=== PATIENT | female | born 1950 | race Caucasian/White ===

== ENCOUNTER 2017-10-13 07:13 | Emergency (ER) | payer MEDICARE, OTHER ==
[2017-10-13] MEDS ORDERED: Phenazopyridine 95 MG Tab PO ONE (07:37)
[2017-10-13] MEDS ORDERED: Sulfamethoxazole/Trimethoprim 800-160 MG Tab PO ONE (07:37)
--- NOTE | 2017-10-13 07:37 | EDM.PDOC ---
ED HPI GENERAL MEDICAL PROBLEM - General Chief Complaint: Genitourinary Problem Stated Complaint: PASSING BLOOD Time Seen by Provider: 10/13/17 07:28 Source of Information: Reports: Patient History Limitations: Reports: No Limitations - History of Present Illness INITIAL COMMENTS - FREE TEXT/NARRATIVE: 67-year-old female presents to the ED with acute onset of dysuria urgency and gross hematuria starting about 2 AM this morning. She's was somewhat aware of urinary tract discomfort yesterday afternoon but awoke with symptoms this morning. Socially she has been drinking larger quantities of water overnight but continues to have significant dysuria urgency and frequency with gross hematuria. She is afebrile. She has no back pain. She states she did have a urinary tract infection back in mid summer months last year. And multiple antibiotics for sinus infection over the last few months primarily as Z-Dean followed by a few tablets of Augmentin. She continues to have chronic sinus postnasal drip. 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: Other (see below) (She did take some Azo during the night.) Vaginal Pain Score (Numeric/FACES): 7 - Related Data Allergies Allergy/AdvReac Type Severity Reaction Status Date / Time No Known Allergies Allergy Verified 10/13/17 07:26 Home Meds: Home Meds Phenazopyridine HCl [Pyridium] 100 mg PO Q6H #5 tablet 10/13/17 [Rx] Sulfamethoxazole/Trimethoprim [Bactrim Ds Tablet] 1 each PO BID #14 tablet 10/13 [Rx] Past Medical History HEENT History: Reports: Sinusitis (With chronic postnasal drip) Gastrointestinal History: Reports: GERD Social & Family History - Tobacco Use Smoking Status *Q: Never Smoker Second Hand Smoke Exposure: No - Caffeine Use Caffeine Use: Reports: Tea - Alcohol Use Days Per Week of Alcohol Use: 3 Number of Drinks Per Day: 1 Total Drinks Per Week: 3 - Recreational Drug Use Recreational Drug Use: No - Living Situation & Occupation Living situation: Reports: Single Occupation: Employed ED ROS GENERAL - Review of Systems Review Of Systems: See Below Constitutional: Denies: Fever, Chills, Malaise, Weakness, Fatigue, Night Sweats , Diaphoresis, Decreased Appetite, Weight Loss HEENT: Reports: No Symptoms Respiratory: Reports: No Symptoms Cardiovascular: Reports: No Symptoms Endocrine: Reports: No Symptoms GI/Abdominal: Reports: Abdominal Pain (Lower abdominal discomfort mostly suprapubic pressure discomfort.) : Reports: Dysuria, Frequency, Hematuria (Gross hematuria), Urgency Musculoskeletal: Reports: No Symptoms Skin: Reports: No Symptoms Neurological: Reports: No Symptoms ED EXAM, RENAL/ - Physical Exam Exam: See Below Exam Limited By: No Limitations General Appearance: Alert, WD/WN, Moderate Distress Cardiovascular: Normal Peripheral Pulses, Regular Rate, Rhythm, No Edema GI/Abdominal: Normal Bowel Sounds, Soft, Other. No: Guarding, Rebound, Tender Back Exam: Normal Inspection, Full Range of Motion. No: CVA Tenderness (L), CVA Tenderness (R) Extremities: Normal Inspection, Normal Range of Motion, Non-Tender, No Pedal Edema Neurological: Alert, Oriented, CN II-XII Intact, Normal Cognition, Normal Gait Psychiatric: Normal Affect, Normal Mood Skin Exam: Warm, Dry, Intact, Normal Color, No Rash Course - Vital Signs Last Recorded V/S: Last Vital Signs Temp 36.1 C 10/13/17 07:18 Pulse 76 10/13/17 07:18 Resp 18 10/13/17 07:18 BP Pulse Ox 96 10/13/17 07:18 - Orders/Labs/Meds Orders: Active Orders 24 hr Category Date Time Status Blood Glucose Check, Bedside [RC] ONETIME Care 10/13/17 08:18 Active CULTURE URINE [RM] Stat Lab 10/13/17 07:25 Received Labs: Laboratory Tests 10/13/17 10/13/17 Range/Units 07:25 08:18 POC Glucose 112 (80-115) mg/dL Urine Color Red H (Yellow) Urine Appearance Cloudy H (Clear) Urine pH 7.0 (5.0-8.0) Ur Specific [place] 1.020 (1.005-1.030) Urine Protein 2+ H (Negative) Urine Glucose (UA) Negative (Negative) Urine Ketones Negative (Negative) Urine Occult Blood 3+ H (Negative) Urine Nitrite Negative (Negative) Urine Bilirubin 1+ H (Negative) Urine Urobilinogen 1.0 (0.2-1.0) Ur Leukocyte Esterase 3+ H (Negative) Urine RBC Too numerous to cnt H (0-5) /hpf Urine WBC 5-10 H (0-5) /hpf Ur Epithelial Cells Not seen (0-5) /hpf Urine Bacteria Not seen (FEW) /hpf Urine Mucus Not seen (FEW) /hpf Urinalysis Comment See comment Meds: Medications Discontinued Medications Generic Name Dose Route Start Last Admin Trade Name Freq PRN Reason Stop Dose Admin Phenazopyridine HCl 95 mg 10/13/17 07:37 10/13/17 07:44 Urinary Pain Relief PO 10/13/17 07:38 95 mg ONETIME ONE Administration Trimethoprim/Sulfamethoxazole 1 tab 10/13/17 07:37 10/13/17 07:43 Septra Ds PO 10/13/17 07:38 1 tab ONETIME ONE Administration - Radiology Interpretation Free Text/Narrative:: 67-year-old female presents the ED with acute onset of dysuria urgency and frequency starting at 0200 hrs. this morning. Is aware some lower abdominal discomfort yesterday afternoon. Socially she is developed gross hematuria with each void. Return to void the ED is cranberry urine. Plan urinalysis will be collected and culture ordered. Patient will be given Pyridium 95 mg per ora now and started on Bactrim double strength with first tablet provided now. - Re-Assessments/Exams Free Text/Narrative Re-Assessment/Exam: 10/13/17 08:19 Urinalysis shows 2+ protein 3+ occult blood and 3+ leukocyte esterase. RBCs are too numerous to count. Urine WBCs 5-10. Urine culture has been ordered. 10/13/17 08:33 patient's blood sugar was 112 by glucometer assessment. Reassured that there is no sign of diabetes at this time. Discharged home on Bactrim double strength twice a day for the next 7 days. Pyridium 100 mg every 6 hours 5 doses or until dysuria resolves. Suggested follow-up urinalysis in the clinic one week after finishing antibiotics. Departure - Departure Time of Disposition: 08:19 Disposition: Home, Self-Care 01 Condition: Fair Clinical Impression: Acute hemorrhagic cystitis - Discharge Information Prescriptions: Phenazopyridine HCl [Pyridium] 100 mg PO Q6H #5 tablet Sulfamethoxazole/Trimethoprim [Bactrim Ds Tablet] 1 each PO BID #14 tablet Instructions: Urinary Tract Infection, Adult, [id number] Referrals: Kenneth Milton Jr, MD [Primary Care Provider] - Forms: ED Department Discharge Additional Instructions: Evaluation the emergency room today in regards to development of a significant urinary tract infection overnight with gross blood in the urine. We call this hemorrhagic cystitis. It's a reflection of the type of bacterial infection that invades the bladder wall that causes it to bleed. Treatment is to continue plenty of fluids to flush the bladder. Use Pyridium 100 mg every 6-8 hours to relieve burning discomfort until feeling better. Antibiotic is to be Bactrim double strength 1 tablet twice daily for 7 days. First tablet was started in the ED this morning. Next tablet would be due around suppertime tonight. Tablets should ideally be taken with food rather empty stomach. Expect marked improvement within the next 12-24 hours. Should have a repeat urinalysis performed 1 week after finishing the antibiotics to make sure that there is no reason for recurrent your neck tract infections. - My Orders Last 24 Hours: My Active Orders 10/13/17 07:25 CULTURE URINE [RM] Stat 10/13/17 08:18 Blood Glucose Check, Bedside [RC] ONETIME - Assessment/Plan Last 24 Hours: My Active Orders 10/13/17 07:25 CULTURE URINE [RM] Stat 10/13/17 08:18 Blood Glucose Check, Bedside [RC] ONETIME
== END 2017-10-13 08:23 | disposition home or self-care (01) ==
LOC: JD.ED 07:13
DX: N30.00 Acute cystitis without hematuria (principal); K21.9 Gastro-esophageal reflux disease without esophagitis
CPT/HCPCS: 81001; 82962; 87086; 87088; 87186; 99284; A9270; 99283

== ENCOUNTER 2018-05-01 06:03 | Day surgery (SDC) | payer MEDICARE, OTHER ==
[~2018-05-01 06:03] MED LIST: Acetaminophen 325 MG Tab PO SCH; Lactated Ringers 1,000 ML IV SCH; Lidocaine 1%/Sod Bicarbonate in NS 8.4% 1 ML Syringe IDERM PRN; Pregabalin 25 MG Cap PO SCH; Sodium Chloride 0.9% 10 ML Syringe FLUSH PRN; oxyCODONE ER 10 MG TAB.ER PO SCH
[2018-05-01] MEDS ORDERED: Cyclobenzaprine 10 MG Tab PO PRN (06:31)
[2018-05-01] MEDS ORDERED: Naloxone 0.4 MG/ML SDV IVPUSH PRN (06:32)
[2018-05-01] MEDS ORDERED: Morphine 2 MG/ML Syringe IVPUSH PRN (06:32)
[2018-05-01] MEDS ORDERED: Magnesium Hydroxide 400 MG/5 ML Susp 30 ML Cup PO PRN (06:32)
[2018-05-01] MEDS ORDERED: Sennosides 8.6 MG Tab PO PRN (06:32)
[2018-05-01] MEDS ORDERED: Bisacodyl 5 MG Tab PO PRN (06:32)
--- NOTE | 2018-05-01 06:50 | PCM.PREANE ---
Preanesthetic Assessment - Anesthesia/Transfusion/Family Hx Anesthesia History: Prior Anesthesia Without Reaction Family History of Anesthesia Reaction: No Transfusion History: No Prior Transfusion(s) - Review of Systems General: No Symptoms Pulmonary: No Symptoms Cardiovascular: No Symptoms Gastrointestinal: No Symptoms Neurological: No Symptoms Other: Reports: None - Physical Assessment NPO Status Date: 05/01/18 NPO Status Time: 00:00 Pulse: 74 O2 Sat by Pulse Oximetry: 96 Respiratory Rate: 18 Blood Pressure: 179/111 Temperature: 36.4 C Height: 1.55 m Weight: 84.958 kg ASA Class: 2 Mental Status: Alert & Oriented x3 Dentition: Reports: Normal Dentition, [place](s) Thyro-Mental Finger Breadths: 3 Mouth Opening Finger Breadths: 3 ROM/Head Extension: Full Lungs: Clear to Auscultation, Normal Respiratory Effort Cardiovascular: Regular Rate, Regular Rhythm, No Murmurs - Lab Values: Laboratory Last Values MRSA (PCR) Negative 04/11/18 10:09 - Imaging/EKG Impressions: on chart - Allergies Allergies/Adverse Reactions: Allergies Allergy/AdvReac Type Severity Reaction Status Date / Time [place] And Derivatives Allergy Cannot Verified 04/28/18 10:32 Remember hydrochlorothiazide Allergy Cannot Verified 04/28/18 10:32 Remember lactose Allergy Cannot Verified 04/28/18 10:32 Remember nickel Allergy Rash Verified 04/28/18 10:32 wheat Allergy Cannot Verified 04/28/18 10:32 Remember - Anesthesia Plan Pre-Op Medication Ordered: None - Acknowledgements Anesthesia Type Planned: Spinal Pt an Appropriate Candidate for the Planned Anesthesia: Yes Alternatives and Risks of Anesthesia Discussed w Pt/Guardian: Yes Pt/Guardian Understands and Agrees with Anesthesia Plan: Yes PreAnesthesia Questionnaire HEENT History: Reports: Sinusitis Cardiovascular 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 Respiratory 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 Gastrointestinal History: Reports: GERD Genitourinary 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, Other (See Below) Other Genitourinary History: menopausal, dysuria 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 INSTRUCTOR 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 Musculoskeletal History: Reports: Other (See Below) Other Musculoskeletal History: degnerative joint disease Neurological 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 Psychiatric 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 Endocrine/Metabolic 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 Hematologic 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 Immunologic 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 Oncologic (Cancer) 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 Dermatologic 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 - Past Surgical History Head Surgeries/Procedures: Reports: None HEENT Surgical 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 Cardiovascular Surgical 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 Respiratory Surgical 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 GI Surgical History: Reports: Cholecystectomy, Colonoscopy Female Surgical History: Reports: Section, Hysterectomy Male Surgical 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 Endocrine Surgical 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 Neurological Surgical 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 Musculoskeletal Surgical 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 Oncologic Surgical 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 Dermatological Surgical 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 - SUBSTANCE USE Smoking Status *Q: Never Smoker Tobacco Use Within Last Twelve Months: No Second Hand Smoke Exposure: No Days Per Week of Alcohol Use: 0 Number of Drinks Per Day: 0 Total Drinks Per Week: 0 Recreational Drug Use History: No - HOME MEDS Home Medications: Home Meds Cetirizine [ZyrTEC] 10 mg PO DAILY 04/28/18 [History] - CURRENT (IN HOUSE) MEDS Current Meds: Current Medications Acetaminophen (Tylenol) 975 mg PO ONETIME [facility] Stop: 05/01/18 14:00 Aspirin (Ecotrin) 325 mg PO BID NATALIE Bisacodyl (Dulcolax) 5 mg PO DAILY PRN PRN Reason: Constipation Morphine Sulfate 8 mg/Epinephrine HCl 0.3 mg/Cefuroxime Sodium 750 mg/Ketorolac Tromethamine 30 mg/Sodium Chloride 27.9 ml 0 mg .XX ONETIME ONE Stop: 05/01/18 06:32 Cyclobenzaprine HCl (Flexeril) 10 mg PO TID PRN PRN Reason: Spasms Docusate Sodium (Colace) 100 mg PO BID NATALIE Famotidine (Pepcid) 20 mg PO Q12H [facility] Lactated Ringer's (Ringers, Lactated) 1,000 mls @ 125 mls/hr IV ASDIRECTED [facility] Stop: 05/01/18 23:00 Cefazolin Sodium/Dextrose 2 gm (/ Premix) 50 mls @ 100 mls/hr IV Q8H NATALIE Stop: 05/01/18 23:14 Ketorolac Tromethamine (Toradol) 15 mg IVPUSH Q6H PRN PRN Reason: Pain Lidocaine/Sodium Bicarbonate (Buffered Lidocaine 1% In Ns 8.4%) 0.25 ml IDERM ONETIME PRN PRN Reason: Prior to IV Start Stop: 05/01/18 18:00 Magnesium Hydroxide (Milk Of Magnesia) 30 ml PO BID PRN PRN Reason: Constipation Morphine Sulfate (Morphine) 2 mg IVPUSH Q2H PRN PRN Reason: Breakthrough Pain Naloxone HCl (Narcan) 0.1 mg IVPUSH Q5M PRN PRN Reason: Oversedation Ondansetron HCl (Zofran) 4 mg IVPUSH Q6H PRN PRN Reason: Nausea/Vomiting Oxycodone HCl (Oxycontin) 10 mg PO ONETIME NATALIE Stop: 05/01/18 14:00 Oxycodone/Acetaminophen (Percocet 325-5 Mg) 1 - 2 tab PO Q4H PRN PRN Reason: Pain Pregabalin (Lyrica) 50 mg PO ONETIME [facility] Stop: 05/01/18 18:00 Senna (Senna) 8.6 mg PO BID PRN PRN Reason: Constipation Sodium Chloride (Saline Flush) 10 ml FLUSH ASDIRECTED PRN PRN Reason: Keep Vein Open Stop: 05/01/18 18:00 Discontinued Medications Bupivacaine HCl (Marcaine 0.25%) Confirm Administered Dose 30 ml .ROUTE .STK- MED ONE Stop: 05/01/18 06:21 Cefazolin Sodium (Ancef) Confirm Administered Dose 2 gm .ROUTE .STK-MED ONE Stop: 05/01/18 06:21 Iodine (Iodine 2% Mild Tincture) Confirm Administered Dose 30 ml .ROUTE .STK- MED ONE Stop: 05/01/18 06:21 Tranexamic Acid (Cyklokapron) Confirm Administered Dose 1,000 mg .ROUTE .STK- MED ONE Stop: 05/01/18 06:20 Vancomycin HCl (Vancomycin) Confirm Administered Dose 1 gm .ROUTE .STK-MED ONE Stop: 05/01/18 06:20
[2018-05-01] MEDS ORDERED: Ondansetron 4 MG/2 ML SDV ONE (06:56)
[2018-05-01] MEDS ORDERED: Propofol 200 MG/20 ML SDV ONE ×3 (06:56→08:16)
[2018-05-01] MEDS ORDERED: fentaNYL 100 MCG/2 ML SDV ONE (06:57)
[2018-05-01] MEDS ORDERED: ceFAZolin 1 GM Vial ONE ×2 (06:57→07:21)
[2018-05-01] MEDS ORDERED: Midazolam 1 MG/ML 2 ML SDV ONE (06:57)
[2018-05-01] MEDS ORDERED: Lidocaine 1% 4 ML ONE (07:21)
[2018-05-01] MEDS ORDERED: Bupivacaine 0.75% 30 ML SDV ONE (07:21)
[2018-05-01] MEDS ORDERED: Lactated Ringers 1,000 ML ONE (07:22)
[2018-05-01] MEDS ORDERED: Phenylephrine/Normal Saline 100 MCG/ML 10 ML Syringe ONE ×2 (07:34→08:19)
[2018-05-01] MEDS ORDERED: EPINEPHrine 1 MG/ML SDV ONE (07:54)
[2018-05-01] MEDS: Iodine/Sodium Iodide 2% Tincture 30 ML Bottle ONE ×2 (07:55→08:07)
[2018-05-01] MEDS ORDERED: Ropivacaine 0.5% 5 MG/ML 30 ML SDV ONE (07:56)
[2018-05-01] MEDS: Bupivacaine 0.25% 30 ML SDV ONE ×2 (07:56→08:14)
[2018-05-01] MEDS: ceFAZolin 1 GM Vial ONE ×2 (07:56→08:08)
[2018-05-01] MEDS: Vancomycin 1 GM SDV ONE ×2 (07:57→08:15)
[2018-05-01] MEDS: Morphine 8 MG, EPINEPHrine 0.3 MG, Cefuroxime 750 MG, Ketorolac 30 MG, Sodium Chloride ... ONE ×10 (07:57→08:13)
[2018-05-01] MEDS ORDERED: fentaNYL 100 MCG/2 ML SDV IVPUSH PRN (08:54)
--- NOTE | 2018-05-01 08:56 | PCM.POSTAN ---
POST ANESTHESIA ASSESSMENT - MENTAL STATUS Mental Status: Alert, Oriented - VITAL SIGNS Pulse Rate: 65 SaO2: 95 Resp Rate: 9 Blood Pressure: 92/52 Temperature: 36.4 C - RESPIRATORY Respiratory Status: Respiratory Rate WNL, Airway Patent, O2 Saturation Stable - CARDIOVASCULAR CV Status: Pulse Rate WNL, Blood Pressure Stable - GASTROINTESTINAL GI Status: No Symptoms - PAIN Pain Score: 0 - POST OP HYDRATION Hydration Status: Adequate & Stable - OBSERVATIONS Free Text/Narrative:: no anesthesia complications noted
--- NOTE | 2018-05-01 09:25 | PCM.SN ---
- Free Text/Narrative Note: Right selective femoral nerve block at the adductor canal for post-procedure pain control Time Out: 904 Start: 904 End: 913 Chart reviewed. Consent signed. Questions answered. Appropriate monitors applied. Time out performed. Right mid-shaft femur evaluated with ultrasound. Scanning medially femur, I was able to identify the femoral artery in the adductor canal. The saphenous nerve was lateral to the artery. The skin was prepped lateral to the ultrasound probe with chlorahexadine. The 21ga [id number] insulated block needle was inserted under direct ultrasound guidance into the adductor canal. 25mL of 0.5% ropivacaine with 1:200,000 epinephrine was injected cirmcumferentially about the nerve with intermittent negative aspiration every 5mL. Patient tolerated the procedure well. See pictures on progress note and vital signs on nurses notes. Block completed postoperatively. Eduardo Barboza CRNA
--- NOTE | 2018-05-01 09:38 | CR ---
Right knee: AP and lateral views of the right knee were obtained. Comparison: No prior right knee exam. Knee prosthesis is seen. Components are aligned. Soft tissue air is noted. Underlying bony structures are intact. Impression: 1. Satisfactory radiographic appearance of recently placed right knee prosthesis. Diagnostic code #2
[2018-05-01] MEDS: Famotidine 20 MG Tab PO SCH ×2 (11:53→18:07)
[2018-05-01] MEDS: ceFAZolin 2 GM in Premix Bag 1 BAG IV SCH ×2 (14:41→22:20)
[2018-05-01] MEDS: Acetaminophen/oxyCODONE 325-5 MG Tab PO PRN ×2 (14:48→21:18)
--- NOTE | 2018-05-01 16:09 | PCM.SN ---
- Free Text/Narrative Note: In to see Maris. Overall she is doing well s/p R TKA day 0. She currently states her pain is controlled, but rates it about 5/10. Denies F/C, Headache, N/ V/D, Chest pain, SOB, Cough. Working with Physical Therapy. Urinating. Using Incentive Spirometry. No dewey. No supplemental O2. DVT prophylaxis. Physical Exam unremarkable- PERRLA, Lungs Clear, Normal Heart sounds, Neurovascularly intact in extremities with 2+ pulses. No other concerns from nursing.
[2018-05-01] MEDS: Ondansetron 4 MG/2 ML SDV IVPUSH PRN (18:11)
[2018-05-01] MEDS: Ketorolac 15 MG/ML SDV IVPUSH PRN (18:14)
[2018-05-01] MEDS: Docusate Sodium 100 MG Cap PO SCH (21:19)
[2018-05-02] MEDS: Acetaminophen/oxyCODONE 325-5 MG Tab PO PRN ×3 (01:27→13:37)
[2018-05-02] MEDS: Famotidine 20 MG Tab PO SCH (06:10)
[2018-05-02] MEDS: ceFAZolin 2 GM in Premix Bag 1 BAG IV SCH (06:11)
[2018-05-02] MEDS: Ondansetron 4 MG/2 ML SDV IVPUSH PRN (07:05)
[2018-05-02] MEDS ORDERED: Scopolamine 1.5 MG Transdermal Patch TRDERM PRN (07:52)
[2018-05-02] MEDS: Ketorolac 15 MG/ML SDV IVPUSH PRN (08:03)
[2018-05-02] MEDS ORDERED: Aspirin 325 MG Tab.EC PO SCH (09:00)
[2018-05-02] MEDS ORDERED: Loratadine 10 MG Tab PO SCH (09:00)
[2018-05-02] MEDS: Docusate Sodium 100 MG Cap PO SCH (09:09)
--- NOTE | 2018-05-02 09:27 | PCM.SURGPN ---
- General Info Date of Service: 05/02/18 POD#: 1 Functional Status: Reports: Pain Controlled, Tolerating Diet, Ambulating, Urinating, Incentive Spirometry, Other (The pt states she is doing well, aside from nausea.) - Patient Data Vitals - Most Recent: Last Vital Signs Temp 98.4 F 05/02/18 08:11 Pulse 69 05/02/18 08:11 Resp 16 05/02/18 08:11 BP 114/67 05/02/18 08:11 Pulse Ox 91 L 05/02/18 08:00 Weight - Most Recent: 187 lb 4.8 oz I&O - Last 24 Hours: Intake & Output 05/01/18 05/02/18 05/02/18 22:59 06:59 14:59 Intake Total 2750 630 Output Total 295 1000 Balance 2455 -370 Lab Results Last 24 Hrs: Laboratory Results - last 24 hr 05/02/18 05/02/18 Range/Units 05:53 05:53 WBC 9.29 (3.98-10.04) K/mm3 RBC 4.14 (3.98-5.22) M/mm3 Hgb 12.3 (11.2-15.7) gm/L Hct 37.9 (34.1-44.9) % MCV 91.5 (79.4-94.8) fl MCH 29.7 (25.6-32.2) pg MCHC 32.5 (32.2-35.5) g/dl RDW Std Deviation 41.6 (36.4-46.3) fL Plt Count 224 (182-369) K/mm3 MPV 10.4 (9.4-12.3) fl Sodium 137 (136-145) mEq/L Potassium 4.0 (3.5-5.1) mEq/L Chloride 102 (98-107) mEq/L Carbon Dioxide 29 (21-32) mEq/L Anion Gap 10.0 (5-15) BUN 13 (7-18) mg/dL Creatinine 0.9 (0.55-1.02) mg/dL Est Cr Clr Drug Dosing 46.40 mL/min Estimated GFR (MDRD) > 60 (>60) mL/min BUN/Creatinine Ratio 14.4 (14-18) Glucose 109 (80-115) mg/dL Calcium 8.3 L (8.5-10.1) mg/dL Total Bilirubin 0.7 (0.2-1.0) mg/dL AST 81 H (15-37) U/L ALT 63 H (14-59) U/L Alkaline Phosphatase 87 (46-116) U/L Total Protein 5.6 L (6.4-8.2) g/dl Albumin 2.7 L (3.4-5.0) g/dl Globulin 2.9 gm/dL Albumin/Globulin Ratio 0.9 L (1-2) Med Orders - Current: Current Medications Aspirin (Ecotrin) 325 mg PO BID [facility] Last Admin: 05/02/18 09:09 Dose: 325 mg Bisacodyl (Dulcolax) 5 mg PO DAILY PRN PRN Reason: Constipation Cyclobenzaprine HCl (Flexeril) 10 mg PO TID PRN PRN Reason: Spasms Docusate Sodium (Colace) 100 mg PO BID [facility] Last Admin: 05/02/18 09:09 Dose: 100 mg Famotidine (Pepcid) 20 mg PO Q12H [facility] Last Admin: 05/02/18 06:10 Dose: 20 mg Ketorolac Tromethamine (Toradol) 15 mg IVPUSH Q6H PRN PRN Reason: Pain Last Admin: 05/02/18 08:03 Dose: 15 mg Loratadine (Claritin) 10 mg PO DAILY [facility] Last Admin: 05/02/18 09:09 Dose: 10 mg Magnesium Hydroxide (Milk Of Magnesia) 30 ml PO BID PRN PRN Reason: Constipation Miscellaneous Information (Remove Patch) 1 ea TRDERM Q72H [facility] Morphine Sulfate (Morphine) 2 mg IVPUSH Q2H PRN PRN Reason: Breakthrough Pain Naloxone HCl (Narcan) 0.1 mg IVPUSH Q5M PRN PRN Reason: Oversedation Ondansetron HCl (Zofran) 4 mg IVPUSH Q6H PRN PRN Reason: Nausea/Vomiting Last Admin: 05/02/18 07:05 Dose: 4 mg Oxycodone/Acetaminophen (Percocet 325-5 Mg) 1 - 2 tab PO Q4H PRN PRN Reason: Pain Last Admin: 05/02/18 08:14 Dose: 2 tab Scopolamine (Transderm-Scop) 1.5 mg TRDERM Q72H PRN PRN Reason: Nausea/Vomiting Senna (Senna) 8.6 mg PO BID PRN PRN Reason: Constipation Discontinued Medications Acetaminophen (Tylenol) 975 mg PO ONETIME [facility] Stop: 05/01/18 14:00 Last Admin: 05/01/18 07:00 Dose: 975 mg Bupivacaine HCl (Marcaine 0.25%) Confirm Administered Dose 30 ml .ROUTE .STK- MED ONE Stop: 05/01/18 06:21 Last Admin: 05/01/18 08:14 Dose: 20 ml Bupivacaine HCl (Sensorcaine-Mpf 0.75%) Confirm Administered Dose 30 ml .ROUTE .STK-MED ONE Stop: 05/01/18 07:22 Cefazolin Sodium (Ancef) Confirm Administered Dose 2 gm .ROUTE .STK-MED ONE Stop: 05/01/18 06:21 Last Admin: 05/01/18 08:08 Dose: 2 gm Cefazolin Sodium (Ancef) Confirm Administered Dose 2 gm .ROUTE .STK-MED ONE Stop: 05/01/18 06:58 Cefazolin Sodium (Ancef) Confirm Administered Dose 2 gm .ROUTE .STK-MED ONE Stop: 05/01/18 07:22 Morphine Sulfate 8 mg/Epinephrine HCl 0.3 mg/Cefuroxime Sodium 750 mg/Ketorolac Tromethamine 30 mg/Sodium Chloride 27.9 ml 0 mg .XX ONETIME ONE Stop: 05/01/18 07:31 Last Admin: 05/01/18 08:13 Dose: 788.3 mg Epinephrine HCl (Adrenalin) Confirm Administered Dose 1 mg .ROUTE .STK-MED ONE Stop: 05/01/18 07:55 Fentanyl (Sublimaze) Confirm Administered Dose 100 mcg .ROUTE .STK-MED ONE Stop: 05/01/18 06:58 Fentanyl (Sublimaze) 50 mcg IVPUSH Q5M PRN PRN Reason: Pain Stop: 05/01/18 12:00 Lactated Ringer's (Ringers, Lactated) 1,000 mls @ 125 mls/hr IV ASDIRECTED [facility] Stop: 05/01/18 23:00 Last Admin: 05/01/18 06:30 Dose: 125 mls/hr Cefazolin Sodium/Dextrose 2 gm (/ Premix) 50 mls @ 100 mls/hr IV Q8H [facility] Stop: 05/02/18 07:29 Last Admin: 05/02/18 06:11 Dose: 100 mls/hr Lidocaine HCl (Xylocaine-Mpf 1%) Confirm Administered Dose 5 mls @ as directed .ROUTE .STK-MED ONE Stop: 05/01/18 07:22 Lidocaine HCl (Xylocaine-Mpf 1%) Confirm Administered Dose 4 mls @ as directed .ROUTE .STK-MED ONE Stop: 05/01/18 07:22 Lactated Ringer's (Ringers, Lactated) Confirm Administered Dose 1,000 mls @ as directed .ROUTE .STK-MED ONE Stop: 05/01/18 07:23 Iodine (Iodine 2% Mild Tincture) Confirm Administered Dose 30 ml .ROUTE .STK- MED ONE Stop: 05/01/18 06:21 Last Admin: 05/01/18 08:07 Dose: 18 ml Lidocaine/Sodium Bicarbonate (Buffered Lidocaine 1% In Ns 8.4%) 0.25 ml IDERM ONETIME PRN PRN Reason: Prior to IV Start Stop: 05/01/18 18:00 Last Admin: 05/01/18 06:29 Dose: 0.25 ml Midazolam HCl (Versed 1 Mg/Ml) Confirm Administered Dose 2 mg .ROUTE .STK-MED ONE Stop: 05/01/18 06:58 Ondansetron HCl (Zofran) Confirm Administered Dose 4 mg .ROUTE .STK-MED ONE Stop: 05/01/18 06:57 Oxycodone HCl (Oxycontin) 10 mg PO ONETIME [facility] Stop: 05/01/18 14:00 Last Admin: 05/01/18 07:00 Dose: 10 mg Phenylephrine HCl (Phenylephrine In Ns 100 Mcg/Ml) Confirm Administered Dose 1 mg .ROUTE .STK-MED ONE Stop: 05/01/18 07:35 Phenylephrine HCl (Phenylephrine In Ns 100 Mcg/Ml) Confirm Administered Dose 1 mg .ROUTE .STK-MED ONE Stop: 05/01/18 08:20 Pregabalin (Lyrica) 50 mg PO ONETIME [facility] Stop: 05/01/18 18:00 Last Admin: 05/01/18 07:00 Dose: 50 mg Propofol (Diprivan 20 Ml) Confirm Administered Dose 200 mg .ROUTE .STK-MED ONE Stop: 05/01/18 06:57 Propofol (Diprivan 20 Ml) Confirm Administered Dose 200 mg .ROUTE .STK-MED ONE Stop: 05/01/18 07:48 Propofol (Diprivan 20 Ml) Confirm Administered Dose 200 mg .ROUTE .STK-MED ONE Stop: 05/01/18 08:17 Ropivacaine (Naropin 0.5%) Confirm Administered Dose 30 ml .ROUTE .STK-MED ONE Stop: 05/01/18 07:57 Sodium Chloride (Saline Flush) 10 ml FLUSH ASDIRECTED PRN PRN Reason: Keep Vein Open Stop: 05/01/18 18:00 Tranexamic Acid (Cyklokapron) Confirm Administered Dose 1,000 mg .ROUTE .STK- MED ONE Stop: 05/01/18 06:20 Last Admin: 05/01/18 08:19 Dose: 1,000 mg Vancomycin HCl (Vancomycin) Confirm Administered Dose 1 gm .ROUTE .STK-MED ONE Stop: 05/01/18 06:20 Last Admin: 05/01/18 08:15 Dose: 1 gm - Exam Wound/Incisions: Dressing Dry and Intact General: Alert, Cooperative, No Acute Distress Lungs: Normal Respiratory Effort Extremities: Other (NVS intact for BLE. Joe's negative for BLE.) - Problem List Review Problem List Initiated/Reviewed/Updated: Yes - My Orders Last 24 Hours: Active Orders 24 hr Category Date Time Status Communication Order [RC] ROUTINE Care 05/01/18 08:54 Inactive Cooling Warming Measures [RC] ASDIRECTED Care 05/01/18 08:54 Inactive Notify Provider [RC] ASDIRECTED Care 05/01/18 08:54 Active Oxygen Therapy [RC] ASDIRECTED Care 05/01/18 08:54 Active Pulse Oximetry [RC] ASDIRECTED Care 05/01/18 08:54 Active Vital Signs [RC] Q15M Care 05/01/18 08:54 Inactive Regular Diet [DIET] Diet 05/01/18 Lunch Active Aspirin [Ecotrin] Med 05/02/18 09:00 Active 325 mg PO BID Docusate Sodium [Colace] Med 05/01/18 21:00 Active 100 mg PO BID Loratadine [Claritin] Med 05/02/18 09:00 Active 10 mg PO DAILY Remove Patch Med 05/05/18 08:00 Active 1 ea TRDERM Q72H Scopolamine [Transderm-Scop] Med 05/02/18 07:52 Active 1.5 mg TRDERM Q72H PRN Medication Orders Aspirin (Ecotrin) 325 mg PO BID [facility] Last Admin: 05/02/18 09:09 Dose: 325 mg Bisacodyl (Dulcolax) 5 mg PO DAILY PRN PRN Reason: Constipation Cyclobenzaprine HCl (Flexeril) 10 mg PO TID PRN PRN Reason: Spasms Docusate Sodium (Colace) 100 mg PO BID [facility] Last Admin: 05/02/18 09:09 Dose: 100 mg Admin: 05/01/18 21:19 Dose: 100 mg Famotidine (Pepcid) 20 mg PO Q12H [facility] Last Admin: 05/02/18 06:10 Dose: 20 mg Admin: 05/01/18 18:07 Dose: 20 mg Admin: 05/01/18 11:53 Dose: Ketorolac Tromethamine (Toradol) 15 mg IVPUSH Q6H PRN PRN Reason: Pain Last Admin: 05/02/18 08:03 Dose: 15 mg Admin: 05/01/18 18:14 Dose: 15 mg Loratadine (Claritin) 10 mg PO DAILY [facility] Last Admin: 05/02/18 09:09 Dose: 10 mg Magnesium Hydroxide (Milk Of Magnesia) 30 ml PO BID PRN PRN Reason: Constipation Miscellaneous Information (Remove Patch) 1 ea TRDERM Q72H [facility] Morphine Sulfate (Morphine) 2 mg IVPUSH Q2H PRN PRN Reason: Breakthrough Pain Naloxone HCl (Narcan) 0.1 mg IVPUSH Q5M PRN PRN Reason: Oversedation Ondansetron HCl (Zofran) 4 mg IVPUSH Q6H PRN PRN Reason: Nausea/Vomiting Last Admin: 05/02/18 07:05 Dose: 4 mg Admin: 05/01/18 18:11 Dose: 4 mg Oxycodone/Acetaminophen (Percocet 325-5 Mg) 1 - 2 tab PO Q4H PRN PRN Reason: Pain Last Admin: 05/02/18 08:14 Dose: 2 tab Admin: 05/02/18 01:27 Dose: 2 tab Admin: 05/01/18 21:18 Dose: 2 tab Admin: 05/01/18 14:48 Dose: 2 tab Scopolamine (Transderm-Scop) 1.5 mg TRDERM Q72H PRN PRN Reason: Nausea/Vomiting Senna (Senna) 8.6 mg PO BID PRN PRN Reason: Constipation - Assessment Assessment (Free Text/Narrative):: POD#1 - right TKA - Plan Plan (Free Text/Narrative):: 1. Hgb 12.3. 2. Discharge to home today if cleared by Hospitalist service. 3. Outpatient P.T. 4. ASA 325mg PO BID, frequent mobility, TEDs. The pt's case was discussed with Dr. Coello.
--- NOTE | 2018-05-02 09:34 | PCM48HPAN ---
Post Anesthesia Note - EVALUATION WITHIN 48HRS OF ANESTHETIC Vital Signs in Normal Range: Yes Patient Participated in Evaluation: Yes Respiratory Function Stable: Yes Airway Patent: Yes Cardiovascular Function Stable: Yes Hydration Status Stable: Yes Pain Control Satisfactory: Yes Nausea and Vomiting Control Satisfactory: Yes (controled) Mental Status Recovered: Yes - COMMENTS/OBSERVATIONS Free Text/Narrative:: no anesthesia complications noted
--- NOTE | 2018-05-02 09:48 | PCM.SN ---
- Free Text/Narrative Note: In to see Maris. She is S/P right TKA, post-op day 1. She is doing well. She denies any chest pain, palpitations, SOB, Diarrhea, or abdominal pain. She has had some nausea and dry heaving today. Scopolamine patch was applied and this has since resolved. She has been up ambulating and working with therapies. She has urinated. Labs and vital signs today look good. Hgb is 12.3 (15.5 pre- operative) and eGFR is >60 (72 pre-operative). Pain is controlled. She has been weaned off oxygen and utilizing her IS. No nursing or patient concerns. Physical exam is unremarkable with no abdominal pain, clear lung sounds, and normal rate/rhythm. Pulses are 2+ bilaterally on upper and lower extremities with no neurological deficits. From a hospitalist standpoint she is cleared for discharge pending primary team and PT/OT agreement.
[2018-05-02 13:40] VITALS: BP 135/98
--- NOTE | 2018-05-11 07:20 | PCM.OPNOTE ---
- General Post-Op/Procedure Note Date of Surgery/Procedure: 05/01/18 Operative Procedure(s): right total knee arthroplasty Pre Op Diagnosis: right knee osteoarthrosis Post-Op Diagnosis: Same Anesthesia Technique: Local, MAC, Spinal Primary Surgeon: Stuart Coello Anesthesia Provider: Eduardo Barboza Senior Tax Analyst: Charleen Freed Senior Tax Analyst: Amy Thornton EBAndrea in mLs: 300 Complications: None Condition: Good Free Text/Narrative:: size 4/4 11mm 29x9
--- NOTE | 2018-05-11 14:54 | OR ---
DATE OF OPERATION: 05/01/2018 SURGEON: Stuart Coello MD OPERATION PERFORMED: Right total knee arthroplasty. PREOPERATIVE DIAGNOSIS: Right knee osteoarthrosis. POSTOPERATIVE DIAGNOSIS: Right knee osteoarthrosis. ANESTHESIA: Local MAC with spinal. ANESTHESIA PROVIDER: Eduardo Barboza CRNA. MEDICAL TECHNICIANS: Charleen Freed PA-C and Amy Thornton LPN. ESTIMATED BLOOD LOSS: 300 mL. COMPLICATIONS: None. CONDITION: Stable. IMPLANTS: 1. [place] size 4 press-fit CR femur. 2. Brice size 4 press-fit tibial base plate. 3. [place] size 4 11 mm CS polyethylene insert. 4. [place] size 29 x 9 mm press-fit patella. DESCRIPTION OF PROCEDURE: The patient was identified in the preop holding area. Proper site was marked and identified by the surgeon. The patient was taken back to the operating theater. After adequate anesthesia, the patient's right lower extremity had a nonsterile tourniquet applied and it was then sterilely prepped and draped in the usual sterile fashion. OR timeout was performed. The patient received 2 g IV Ancef. At this time, right lower extremity was exsanguinated. Tourniquet was insufflated to 300 mmHg. Standard medial parapatellar incision was made. Medial parapatellar arthrotomy was created. Deep fibers of the MCL were raised and anterior fat pad was resected. At this time, attention was turned to the patella. Patella measured 22 and was resected to a 13 for a 29 x 9 mm patella. Drill holes were then drilled and found to be in adequate position. The drill was then drilled in the distal femur and the intramedullary distal femoral cutting guide was then placed. 8 mm was resected off the distal femur and was found to be an adequate resection. Sizing guide was placed. It was found to be a size 4 femur that was shown on the implant record at the beginning of this dictation. The drill holes were drilled for the epicondylar axis using [place] line and epicondyles as reference. At this time, the 4-in-1 cutting block was placed. An anterior posterior and anterior and posterior chamfer cuts were then completed. Attention was turned to the tibia. The posterior medial lateral retractors were placed. The extramedullary tibial guide was placed. It was placed in the old footprint of the ACL. It was aligned with the center of the ankle and 0 degrees of slope, 9 mm was then resected off the unaffected lateral side. There was found to be an acceptable reduction. At this time, posterior osteophytes were removed along with medial and lateral meniscus. A trial implant was placed with a correct sized tibia that was mentioned at the beginning of the dictation. A [place] size 4 11 mm CS polyethylene was then placed. The patient's knee was brought through range of motion. The patella was tracking centrally and was stable to varus and valgus stress. Alignment was found to be roughly at 0 degrees. The tibia was stamped and drilled in proper rotation. The universal tibial base plate was impacted in place. Next, the Brice size 4 press-fit CR femur was impacted into place and the [place] size 4 11 mm CS polyethylene was placed. The patient's knee was brought into full extension. The patella was then press-fit in place at this time. Tourniquet was deflated. One liter dilute Betadine solution was irrigated through the knee along with 3 L of pulse lavage irrigation with Ancef. Periarticular injection was then completed. The patient's knee was brought through a range of motion. Knee was found to be stable to varus valgus stress, the patella was tracking centrally with full range of motion. At this time, a #2 barbed suture was used for closure of the medial parapatellar arthrotomy. Topical tranexamic acid was placed. 2-0 Vicryl was used subcutaneously, a running 3-0 Monocryl was used subcuticularly. The patient tolerated the procedure well and was sent to the PACU in stable condition. MMODAL /[id number] MTDD
== END 2018-05-02 14:30 | disposition home or self-care (01) ==
LOC: JD.SDS 06:03 → JD.MS 06:05 → JD.SDS 05-02 14:30
PROVIDERS: ATTEND Orthopaedic Surgery
DX: M17.11 Unilateral primary osteoarthritis, right knee (principal); E11.9 Type 2 diabetes mellitus without complications; Z79.899 Other long term (current) drug therapy; Z88.8 Allergy status to other drugs, medicaments and biological substances; Z91.018 Allergy to other foods
CPT/HCPCS: 27447; 36415; 73560; 80053; 85027; 87641; 97110; 97116; 97161; 97165; 97535; A9270; C1776; J0171; J0690; J0697; J1885; J2250; J2270; J2370; J2405; J2704; J2795; J3010; J3370; J3490; J7120; 01402; 64450; J2001

== ENCOUNTER 2019-09-02 20:04 | Emergency (ER) | payer MEDICARE, OTHER ==
--- NOTE | 2019-09-02 20:22 | EDM.PDOC ---
ED HPI GENERAL MEDICAL PROBLEM - General Chief Complaint: Genitourinary Problem Stated Complaint: POSSIBLE BLADDER INFECTION Time Seen by Provider: 09/02/19 20:17 Source of Information: Reports: Patient History Limitations: Reports: No Limitations - History of Present Illness INITIAL COMMENTS - FREE TEXT/NARRATIVE: Patient is an unfortunate 69-year-old female who is obese that presents emergency Department today with complaint of dysuria frequency and urgency. Patient reports symptoms started 2 days ago progressively worsened this evening with hematuria so she presented emergency department for evaluation. 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 (see below) Bladder Pain Score (Numeric/FACES): 8 - Related Data Allergies Allergy/AdvReac Type Severity Reaction Status Date / Time [place] And Derivatives Allergy Cannot Verified 05/01/18 07:21 Remember hydrochlorothiazide Allergy Cannot Verified 05/01/18 07:21 Remember lactose Allergy Cannot Verified 05/01/18 07:21 Remember nickel Allergy Rash Verified 05/01/18 07:21 wheat Allergy Cannot Verified 05/01/18 07:21 Remember Home Meds: Home Meds Cephalexin [Keflex] 500 mg PO QID #28 capsule 09/02/19 [Rx] Cyanocobalamin (Vitamin B12) [Vitamin B12] 1,200 mcg PO DAILY 09/02/19 [History] Phenazopyridine [Pyridium] 200 mg PO TID #9 tab 09/02/19 [Rx] Vitamin E 5,000 unit PO DAILY 09/02/19 [History] Past Medical History HEENT History: Reports: Sinusitis Cardiovascular 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 Respiratory 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 Gastrointestinal History: Reports: GERD Genitourinary 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, Other (See Below) Other Genitourinary History: menopausal, dysuria 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 Musculoskeletal History: Reports: Other (See Below) Other Musculoskeletal History: degnerative joint disease Neurological 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 Psychiatric 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 Endocrine/Metabolic 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 Hematologic 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 Immunologic 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 Oncologic (Cancer) 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 Dermatologic 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 - Past Surgical History Head Surgeries/Procedures: Reports: None HEENT Surgical 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 Cardiovascular Surgical 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 Respiratory Surgical 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 GI Surgical History: Reports: Cholecystectomy, Colonoscopy Female Surgical History: Reports: Section, Hysterectomy Male Surgical 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 Endocrine Surgical 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 Neurological Surgical 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 Musculoskeletal Surgical 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 Oncologic Surgical 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 Dermatological Surgical 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 Social & Family History - Caffeine Use Caffeine Use: Reports: None - Living Situation & Occupation Living situation: Reports: Single Occupation: Employed ED ROS GENERAL - Review of Systems Review Of Systems: See Below Constitutional: Denies: Fever, Chills : Reports: Dysuria, Frequency, Hematuria, Urgency ED EXAM, RENAL/ - Physical Exam Exam: See Below Exam Limited By: No Limitations General Appearance: Alert, WD/WN, Mild Distress Respiratory/Chest: No Respiratory Distress, Lungs Clear, Normal Breath Sounds, No Accessory Muscle Use, Chest Non-Tender Cardiovascular: Normal Peripheral Pulses, Regular Rate, Rhythm, No Edema, No Gallop, No JVD, No Murmur, No Rub GI/Abdominal: Normal Bowel Sounds, Soft, Tender (Suprapubic) Back Exam: Normal Inspection, Full Range of Motion, NT Extremities: Normal Inspection, Normal Range of Motion, Non-Tender, Normal Capillary Refill, No Pedal Edema Neurological: Alert Skin Exam: Warm, Dry Course - Vital Signs Last Recorded V/S: Last Vital Signs Temp 96.7 F 09/02/19 20:24 Pulse 81 09/02/19 20:24 Resp 20 09/02/19 20:24 BP 165/111 H 09/02/19 20:24 Pulse Ox 96 09/02/19 20:24 - Orders/Labs/Meds Orders: Active Orders 24 hr Category Date Time Status CULTURE URINE [RM] Stat Lab 09/02/19 20:21 Received UA W/MICROSCOPIC [URIN] Stat Lab 09/02/19 20:21 Results cephALEXin [Keflex] Med 09/02/19 20:34 Once 500 mg PO ONETIME ONE Labs: Laboratory Tests 09/02/19 Range/Units 20:21 Urine Color [place] H (Yellow) Urine Appearance Cloudy H (Clear) Urine pH 6.5 (5.0-8.0) Ur Specific [place] 1.020 (1.005-1.030) Urine Protein 1+ H (Negative) Urine Glucose (UA) Negative (Negative) Urine Ketones Negative (Negative) Urine Occult Blood 3+ H (Negative) Urine Nitrite Negative (Negative) Urine Bilirubin Negative (Negative) Urine Urobilinogen 0.2 (0.2-1.0) Ur Leukocyte Esterase 2+ H (Negative) Departure - Departure Time of Disposition: 20:34 Disposition: Home, Self-Care 01 Condition: Good Clinical Impression: UTI, Urinary tract infectious disease - Discharge Information Prescriptions: Cephalexin [Keflex] 500 mg PO QID #28 capsule Phenazopyridine [Pyridium] 200 mg PO TID #9 tab Referrals: Kenneth Milton Jr, MD [Primary Care Provider] - Forms: ED Department Discharge Additional Instructions: Home, rest, return as needed for worsening condition Sepsis Event Note - Focused Exam Vital Signs: Vital Signs Temp Pulse Resp BP Pulse Ox 09/02/19 20:24 96.7 F 81 20 165/111 H 96 Date Exam was Performed: 09/02/19 Time Exam was Performed: 20:34 - My Orders Last 24 Hours: My Active Orders 09/02/19 20:21 CULTURE URINE [RM] Stat UA W/MICROSCOPIC [URIN] Stat 09/02/19 20:34 cephALEXin [Keflex] 500 mg PO ONETIME ONE - Assessment/Plan Last 24 Hours: My Active Orders 09/02/19 20:21 CULTURE URINE [RM] Stat UA W/MICROSCOPIC [URIN] Stat 09/02/19 20:34 cephALEXin [Keflex] 500 mg PO ONETIME ONE
[2019-09-02 20:26] VITALS: BP 165/111; PULSE 81
[2019-09-02] MEDS ORDERED: Cephalexin 500 MG Cap PO ONE (20:34)
[2019-09-02] MEDS ORDERED: Phenazopyridine 95 MG Tab ONE ×2 (20:45→20:49)
[2019-09-02] MEDS ORDERED: Phenazopyridine 95 MG Tab PO STA (21:11)
[2019-09-03] MEDS ORDERED: Phenazopyridine 95 MG Tab PO ONE (20:39)
== END 2019-09-02 20:55 | disposition home or self-care (01) ==
LOC: JD.ED 20:04
DX: N39.0 Urinary tract infection, site not specified (principal); B96.20 Unspecified Escherichia coli [E. coli] as the cause of diseases classified elsewhere; Z88.8 Allergy status to other drugs, medicaments and biological substances; Z91.011 Allergy to milk products; Z91.018 Allergy to other foods; Z91.048 Other nonmedicinal substance allergy status
CPT/HCPCS: 81001; 87086; 87088; 87186; 99283; A9270; 99282

== ENCOUNTER 2020-05-24 14:08 | Emergency (ER) | payer MEDICARE, OTHER ==
[2020-05-24 14:28] VITALS: BP 153/68; PULSE 91
--- NOTE | 2020-05-24 15:33 | EDM.PDOC ---
ED HPI GENERAL MEDICAL PROBLEM - General Chief Complaint: Genitourinary Problem Stated Complaint: POSS UTI Time Seen by Provider: 05/24/20 14:27 Source of Information: Reports: Patient History Limitations: Reports: No Limitations - History of Present Illness INITIAL COMMENTS - FREE TEXT/NARRATIVE: Patient is a 69-year-old female presenting to the emergency department with complaints of dysuria, hematuria, and bladder spasms. She states she was seen in the clinic yesterday and diagnosed with a yeast infection. She was given a single dose of fluconazole with instructions to repeat it in 3 days. She feels her symptoms are worsening. She is concerned that she has a bacterial infection as opposed to a yeast infection. She does have a history of recurrent urinary tract infections. Denies any flank pain, nausea, vomiting, fever, or chills. Bilateral Lower Abdomen Pain Score (Numeric/FACES): 8 - Related Data Allergies Allergy/AdvReac Type Severity Reaction Status Date / Time [place] And Derivatives Allergy Cannot Verified 05/24/20 14:29 Remember hydrochlorothiazide Allergy Cannot Verified 05/24/20 14:29 Remember lactose Allergy Cannot Verified 05/24/20 14:29 Remember nickel Allergy Rash Verified 05/24/20 14:29 pollen extracts Allergy Sneezing Verified 05/24/20 14:29 wheat Allergy Cannot Verified 05/24/20 14:29 Remember Home Meds: Home Meds Cyanocobalamin (Vitamin B12) [Vitamin B12] 1,200 mcg PO DAILY 09/02/19 [History] Phenazopyridine [Pyridium] 200 mg PO TID #9 tab 09/02/19 [Rx] Vitamin E 5,000 unit PO DAILY 09/02/19 [History] cephALEXin [Keflex] 500 mg PO QID #28 capsule 09/02/19 [Rx] cephALEXin [Keflex] 500 mg PO Q6H 7 Days #28 cap 05/24/20 [Rx] Past Medical History HEENT History: Reports: Sinusitis Cardiovascular 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 Respiratory 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 Gastrointestinal History: Reports: GERD Genitourinary History: Reports: UTI, Recurrent, Other (See Below) Other Genitourinary History: menopausal, dysuria [employer] 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 Musculoskeletal History: Reports: Arthritis Other Musculoskeletal History: degnerative joint disease Neurological 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 Psychiatric 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 Endocrine/Metabolic 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 Hematologic 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 Immunologic 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 Oncologic (Cancer) 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 Dermatologic 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 - Infectious Disease History Infectious Disease History: Reports: Chicken Pox, Measles, Mumps - Past Surgical History Respiratory Surgical 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 GI Surgical History: Reports: Cholecystectomy, Colonoscopy Female Surgical History: Reports: Section, Hysterectomy Neurological Surgical 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 Oncologic Surgical 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 Social & Family History - Family History Family Medical History: Noncontributory - Tobacco Use Smoking Status *Q: Never Smoker - Caffeine Use Caffeine Use: Reports: None Other Caffeine Use: green - Recreational Drug Use Recreational Drug Use: No - Living Situation & Occupation Living situation: Reports: Single Occupation: Employed ED ROS GENERAL - Review of Systems Review Of Systems: See Below Constitutional: Reports: No Symptoms. Denies: Fever, Chills, Weakness HEENT: Reports: No Symptoms Respiratory: Reports: No Symptoms Cardiovascular: Reports: No Symptoms Endocrine: Reports: No Symptoms GI/Abdominal: Reports: No Symptoms : Reports: Dysuria, Frequency, Hematuria, Other (bladder spasms). Denies: Flank Pain Musculoskeletal: Reports: No Symptoms Skin: Reports: No Symptoms Neurological: Reports: No Symptoms Psychiatric: Reports: No Symptoms Hematologic/Lymphatic: Reports: No Symptoms Immunologic: Reports: No Symptoms ED EXAM, RENAL/ - Physical Exam Exam: See Below General Appearance: Alert, WD/WN, No Apparent Distress Respiratory/Chest: No Respiratory Distress, Lungs Clear, Normal Breath Sounds, No Accessory Muscle Use, Chest Non-Tender Cardiovascular: Normal Peripheral Pulses, Regular Rate, Rhythm, No Edema, No Gallop, No JVD, No Murmur, No Rub GI/Abdominal: Normal Bowel Sounds, Soft, No Organomegaly, No Distention, No Abnormal Bruit, No Mass, Tender (mild suprapubic tenderness) Back Exam: Normal Inspection, Full Range of Motion. No: CVA Tenderness (L), CVA Tenderness (R) Neurological: Alert, Oriented, CN II-XII Intact, Normal Cognition, Normal Gait, Normal Reflexes, No Motor/Sensory Deficits Psychiatric: Normal Affect, Normal Mood Skin Exam: Warm, Dry, Intact, Normal Color, No Rash Course - Vital Signs Last Recorded V/S: Last Vital Signs Temp 97.9 F 05/24/20 14:24 Pulse 91 05/24/20 14:24 Resp 18 05/24/20 14:24 BP 153/68 H 05/24/20 14:24 Pulse Ox 92 L 05/24/20 14:24 - Orders/Labs/Meds Orders: Active Orders 24 hr Category Date Time Status CULTURE URINE [RM] Stat Lab 05/24/20 22:28 Ordered Labs: Laboratory Tests 05/24/20 Range/Units 14:47 Urine Color [place] H (Yellow) Urine Appearance Cloudy H (Clear) Urine pH 5.0 (5.0-8.0) Ur Specific [place] 1.010 (1.005-1.030) Urine Protein 3+ H (Negative) Urine Glucose (UA) 1+ H (Negative) Urine Ketones 1+ H (Negative) Urine Occult Blood 2+ H (Negative) Urine Nitrite Positive H (Negative) Urine Bilirubin 1+ H (Negative) Urine Urobilinogen 4.0 H (0.2-1.0) Ur Leukocyte Esterase 3+ H (Negative) Urine RBC 0-5 (0-5) /hpf Urine WBC 50-75 H (0-5) /hpf Ur Squamous Epith Cells 0-5 (0-5) /hpf Urine Bacteria Few (FEW) /hpf Urine Mucus Not seen (FEW) /hpf Departure - Departure Time of Disposition: 16:27 Disposition: Home, Self-Care 01 Condition: Good Clinical Impression: UTI, Urinary tract infectious disease - Discharge Information *PRESCRIPTION DRUG MONITORING PROGRAM REVIEWED*: No *COPY OF PRESCRIPTION DRUG MONITORING REPORT IN PATIENT TAMI: No Prescriptions: cephALEXin [Keflex] 500 mg PO Q6H 7 Days #28 cap Instructions: Urinary Tract Infection, Adult Referrals: Kenneth Milton Jr, MD [Primary Care Provider] - Forms: ED Department Discharge Additional Instructions: You were seen in the emergency department today for burning with urination, blood in your urine, and bladder spasms. Your urinalysis does show that you have a urinary tract infection. You have been started on Keflex which is an antibiotic. Take this medication as prescribed. You may continue to use your [id number] Pyridium that you have been using for urinary discomfort. Ensure that you are taking in an adequate amount of fluids. Your urine has been sent for culture. If this should grow to bacteria that is not susceptible to the antibiotic you been started on, you will be notified and a new antibiotic will be as prescribed. Return to the ER for any new or worsening symptoms of concern. Sepsis Event Note (ED) - Evaluation Sepsis Screening Result: No Definite Risk - Focused Exam Vital Signs: Vital Signs Temp Pulse Resp BP Pulse Ox 05/24/20 14:24 97.9 F 91 18 153/68 H 92 L - My Orders Last 24 Hours: My Active Orders 05/24/20 22:28 CULTURE URINE [RM] Stat - Assessment/Plan Last 24 Hours: My Active Orders 05/24/20 22:28 CULTURE URINE [RM] Stat
== END 2020-05-24 16:38 | disposition home or self-care (01) ==
LOC: JD.ED 14:08
DX: N39.0 Urinary tract infection, site not specified (principal); Z91.018 Allergy to other foods; Z88.8 Allergy status to other drugs, medicaments and biological substances; Z91.048 Other nonmedicinal substance allergy status
CPT/HCPCS: 81001; 87086; 87088; 87184; 87186; 99283

== ENCOUNTER 2020-12-08 11:03 | Observation (INO) | payer MEDICARE, OTHER ==
[~2020-12-08 11:03] MED LIST changes: +EPINEPHrine 1 MG/ML SDV ONE; +Ropivacaine 0.5% 5 MG/ML 30 ML SDV ONE; +Scopolamine 1.5 MG Transdermal Patch TOP SCH
--- NOTE | 2020-12-08 12:36 | PCM.PREANE ---
Preanesthetic Assessment - Procedure Proposed Procedure: left total knee arthroplasty - Anesthesia/Transfusion/Family Hx Anesthesia History: Prior Anesthesia Without Reaction Type of Anesthesia Reaction: Excessive Nausea/Vomiting Family History of Anesthesia Reaction: No Transfusion History: No Prior Transfusion(s) - Review of Systems General: No Symptoms Pulmonary: No Symptoms Cardiovascular: No Symptoms Gastrointestinal: No Symptoms Neurological: No Symptoms Other: Reports: None - Physical Assessment NPO Status Date: 12/07/20 NPO Status Time: 23:00 Vital Signs: 152/77 87 96% 97.3 20 Height: 5 ft 4 in Weight: 82 kg ASA Class: 2 Mental Status: Alert & Oriented x3 Airway Class: Mallampati = 1 Dentition: Reports: Normal Dentition Thyro-Mental Finger Breadths: 3 Mouth Opening Finger Breadths: 3 ROM/Head Extension: Full Lungs: Clear to Auscultation, Normal Respiratory Effort Cardiovascular: Regular Rate, Regular Rhythm - Allergies Allergies/Adverse Reactions: Allergies Allergy/AdvReac Type Severity Reaction Status Date / Time wheat Allergy Cannot Verified 12/05/20 14:08 Remember metal Allergy Cannot Uncoded 12/05/20 14:08 Remember - Blood Blood Available: No - Acknowledgements Anesthesia Type Planned: Spinal Pt an Appropriate Candidate for the Planned Anesthesia: Yes Alternatives and Risks of Anesthesia Discussed w Pt/Guardian: Yes Pt/Guardian Understands and Agrees with Anesthesia Plan: Yes PreAnesthesia Questionnaire HEENT History: Reports: Sinusitis Cardiovascular 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 Respiratory 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 Gastrointestinal History: Reports: GERD Genitourinary History: Reports: UTI, Recurrent, Other (See Below) Other Genitourinary History: menopausal, dysuria [employer] 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 Musculoskeletal History: Reports: Arthritis Other Musculoskeletal History: degnerative joint disease Neurological 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 Psychiatric 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 Endocrine/Metabolic 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, Obesity/BMI 30+ Hematologic 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 Immunologic 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 Oncologic (Cancer) 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 Dermatologic 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 - Infectious Disease History Infectious Disease History: Reports: Chicken Pox, Measles, Mumps - Past Surgical History Respiratory Surgical 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 GI Surgical History: Reports: Cholecystectomy, Colonoscopy Female Surgical History: Reports: Section, Hysterectomy Neurological Surgical 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 Musculoskeletal Surgical History: Reports: Knee Replacement Oncologic Surgical 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 - SUBSTANCE USE Tobacco Use Status *Q: Never Tobacco User Tobacco Use Within Last Twelve Months: No Second Hand Smoke Exposure: No Days Per Week of Alcohol Use: 4 Number of Drinks Per Day: 1 Total Drinks Per Week: 4 Recreational Drug Use History: No - HOME MEDS Home Medications: Home Meds Aloe Vera 5,000 mg PO DAILY 12/05/20 [History] Aspirin [Aspirin EC] 325 mg PO BID #84 tab 12/05/20 [Rx] Bile Acid Factor 1 dose PO DAILY 12/05/20 [History] Cholecalciferol (Vitamin D3) [Vitamin D3] 5,000 unit PO DAILY 12/05/20 [History] Choline Bitartrate [Choline Sr] 300 mg PO DAILY 12/05/20 [History] Cyanocobalamin (Vitamin B-12) [Vitamin B-12] 1,000 mcg PO DAILY 12/05/20 [History] Fexofenadine HCl [Darleen Allergy] 60 mg PO DAILY PRN 12/05/20 [History] Ibs Support 1 dose PO DAILY 12/05/20 [History] Lutein 20 mg PO DAILY 12/05/20 [History] Magnesium Amino Acid Chelate [Magnesium] 100 mg PO DAILY 12/05/20 [History] Melatonin 1 mg PO BEDTIME PRN 12/05/20 [History] Montelukast [Singulair] 10 mg PO DAILY 12/05/20 [History] Nystatin [Nystatin Crm] 1 dose TOP ASDIRECTED PRN 12/05/20 [History] Omeprazole 40 mg PO DAILY #40 12/05/20 [Rx] Omeprazole Magnesium [Prilosec Otc] 20 mg PO DAILY 12/05/20 [History] diphenhydrAMINE HCL [Benadryl] 25 mg PO Q6H PRN 12/05/20 [History] oxyCODONE 5 - 10 mg PO Q4H PRN #40 tab 12/05/20 [Rx] proGESTerone [Progesterone] 1 dose TOP ASDIRECTED 12/05/20 [History] - CURRENT (IN HOUSE) MEDS Current Meds: Current Medications Acetaminophen (Acetaminophen 325 Mg Tab) 975 mg PO ONETIME NATALIE Stop: 12/08/20 13:00 Last Admin: 12/08/20 11:18 Dose: 975 mg Documented by: Morphine Sulfate 8 mg/Epinephrine HCl 0.3 mg/Cefuroxime Sodium 750 mg/Ketorolac Tromethamine 30 mg/Sodium Chloride 7.9 ml 0 mg .XX ASDIRECTED PRN PRN Reason: Pain Stop: 12/08/20 18:00 Lactated Ringer's (Ringers, Lactated) 1,000 mls @ 125 mls/hr IV ASDIRECTED NATALIE Stop: 12/08/20 23:00 Lidocaine/Sodium Bicarbonate (Lidocaine 1%/Sod Bicarbonate In Ns 8.4% 1 Ml Syringe) 0.25 ml IDERM ONETIME PRN PRN Reason: Prior to IV Start Stop: 12/08/20 18:00 Oxycodone HCl (Oxycodone Er 10 Mg Tab.Er) 10 mg PO ONETIME NATALIE Stop: 12/08/20 13:00 Last Admin: 12/08/20 11:18 Dose: 10 mg Documented by: Pregabalin (Pregabalin 25 Mg Cap) 50 mg PO ONETIME NATALIE Stop: 12/08/20 13:00 Last Admin: 12/08/20 11:18 Dose: 50 mg Documented by: Scopolamine (Scopolamine 1.5 Mg Transdermal Patch) 1.5 mg TOP ONETIME NATALIE Stop: 12/08/20 13:00 Last Admin: 12/08/20 11:10 Dose: 1.5 mg Documented by: Sodium Chloride (Sodium Chloride 0.9% 10 Ml Syringe) 10 ml FLUSH ASDIRECTED PRN PRN Reason: Keep Vein Open Stop: 12/08/20 18:00 Discontinued Medications Epinephrine HCl (Epinephrine 1 Mg/Ml Sdv) Confirm Administered Dose 1 mg .ROUTE .STK-MED ONE Stop: 12/08/20 09:00 Ropivacaine (Ropivacaine 0.5% 5 Mg/Ml 30 Ml Sdv) Confirm Administered Dose 30 ml .ROUTE .STK-MED ONE Stop: 12/08/20 09:00 Tranexamic Acid (Tranexamic Acid 1,000 Mg/10 Ml Amp) Confirm Administered Dose 1,000 mg .ROUTE .STK-MED ONE Stop: 12/08/20 12:18 Vancomycin HCl (Vancomycin 1 Gm Sdv) Confirm Administered Dose 1 gm .ROUTE .STK- MED ONE Stop: 12/08/20 12:18
[2020-12-08] MEDS: Vancomycin 1 GM SDV ONE ×2 (13:06→14:57)
[2020-12-08] MEDS: Morphine 8 MG, EPINEPHrine 0.3 MG, Cefuroxime 750 MG, Ketorolac 30 MG, Sodium Chloride ... PRN ×10 (13:07→14:50)
[2020-12-08] MEDS ORDERED: Midazolam 1 MG/ML 2 ML SDV ONE (13:14)
[2020-12-08] MEDS ORDERED: Propofol 200 MG/20 ML SDV ONE ×2 (13:14→14:53)
[2020-12-08] MEDS ORDERED: Lidocaine 1% 4 ML ONE (13:15)
[2020-12-08] MEDS ORDERED: ceFAZolin 1 GM Vial ONE (13:23)
[2020-12-08] MEDS ORDERED: Lactated Ringers 1,000 ML ONE ×2 (13:49→14:42)
[2020-12-08] MEDS ORDERED: Ondansetron 4 MG/2 ML SDV ONE (13:53)
[2020-12-08] MEDS ORDERED: diphenhydrAMINE 50 MG/ML SDV IVPUSH PRN (14:28)
[2020-12-08] MEDS ORDERED: Ondansetron 4 MG/2 ML SDV IVPUSH PRN (14:28)
--- NOTE | 2020-12-08 15:28 | PCM.POSTAN ---
POST ANESTHESIA ASSESSMENT - MENTAL STATUS Mental Status: Other (drowsy ) - VITAL SIGNS Vital Signs: Last Vital Signs 1519 109/53 97 2 L 67 12 98.5 Temp 36.3 C 12/08/20 11:10 Pulse 87 12/08/20 11:10 Resp 20 12/08/20 11:10 BP 152/77 H 12/08/20 11:10 Pulse Ox 96 12/08/20 11:10 - RESPIRATORY Respiratory Status: Respiratory Rate WNL, Airway Patent, O2 Saturation Stable, Supplemental Oxygen - CARDIOVASCULAR CV Status: Pulse Rate WNL, Blood Pressure Stable - GASTROINTESTINAL GI Status: No Symptoms - PAIN Pain Score: 0 - POST OP HYDRATION Hydration Status: Adequate & Stable
[2020-12-08] MEDS ORDERED: Midazolam 1 MG/ML 2 ML SDV IVPUSH PRN (15:44)
--- NOTE | 2020-12-08 15:51 | PCM.SN.2 ---
- Free Text/Narrative Note: [id number]- visited with patient in the recovery room. She voiced her dissapointment in hearing voices and noises to the RETAIL FI[employer] SUPERVISOR Diamante. I over heard this conversation and went in to visit with the patient. I did not do her preop interview but did tell her before we went to the OR that there is a chance of hearing/ noises/ voices and this is normal in a spinal anesthetic. She voiced understanding at that time. HOwever now, she was quite upset that she heard noises and states " i remember everything that happened". This is not an accurate portrayal of the situation, however, as the patient was quiet sedated during the procedure. Only once did she request to be sleepier at the begining of the case. In fact, the 2 mg of versed given for the spinal anesthetic left her wobbly and unable to clearly answer questions without slurring. During the case the patient was quiet sedated to the point i needed to apply a jaw thrust to open her airway on multiple occasions when the sedation was increased above 75 mcg/kg/min. I spoke with the patient for at least 10 minutes and she wants to proceed with the adductor canal block and I offered her some versed for this procedure. I explained there was nothing I could do at this point but appologize that she was not as sleepy as she expected to be, however, it was not able to be accomplished safely without compromising her airway. She voiced understanding. I stated if she wants to be 100% asleep with no recollection of any events she needs to request a general anesthetic for future procedures.
--- NOTE | 2020-12-08 16:18 | PCM.SN.2 ---
- Free Text/Narrative Note: Left selective femoral nerve block at the adductor canal for post-procedure pain control under US guidance requested by Dr. Coello. Time Out: 1550 Start: 1550 End: 1601 Chart reviewed. Consent signed. Questions answered. Appropriate monitors applied. Time out performed. Left mid-shaft femur identified with ultrasound, scanning medially of femur, the femoral artery in the adductor canal visualized, and the femoral nerve located laterally to the artery. The skin was prepped lateral to the ultrasound probe with chlorahexadine times two. The 21ga 4 insulated block needle was inserted under direct ultrasound guidance into the adductor canal. 30mL of 0.5% ropivacaine with 1:200,000 epinephrine was injected circumferentially around the nerve with intermittent negative aspiration noted. Patient tolerated the procedure well. Sterile technique noted along with sterile gloves, mask, and sterile probe cover. See picture on progress note and vital signs on nurses notes. Block completed in PACU. Eduardo Barboza CRNA
--- NOTE | 2020-12-08 16:26 | CR ---
Left knee: AP and crosstable lateral views of the left knee were obtained. Comparison: Prior left knee CT study of 12/03/20. Knee prosthesis is seen. Components are aligned. Prosthetic component is also seen within the patella. Soft tissue air is noted. No acute fracture or other bony abnormality is appreciated. Impression: 1. Satisfactory appearance of recently placed left knee prosthesis. Diagnostic code #2
--- NOTE | 2020-12-08 16:52 | PCM.OPNOTE ---
- General Post-Op/Procedure Note Date of Surgery/Procedure: 12/08/20 Operative Procedure(s): left total knee arthroplasty with [employer] Pre Op Diagnosis: left knee osteoarthrosis Post-Op Diagnosis: Same Anesthesia Technique: Local, MAC, Spinal Primary Surgeon: Stuart Coello Anesthesia Provider: Francia Gonzáles Physiotherapy Practice Manager: Charleen Freed Physiotherapy Practice Manager: Amy Thornton EBL in mLs: 5 Complications: None Condition: Good Free Text/Narrative:: Intake & Output 12/08/20 12/08/20 12/08/20 06:59 14:59 22:59 Intake Total 200 Balance 200 3 femur press fit 3 tibia press fit 9mm press fit 29x9 cemented
[2020-12-08] MEDS ORDERED: oxyCODONE 5 MG Tab PO PRN (20:44)
[2020-12-09] MEDS: oxyCODONE 5 MG Tab PO PRN ×2 (01:06→04:53)
[2020-12-09] MEDS ORDERED: Loratadine 10 MG Tab PO PRN (06:51)
[2020-12-09] MEDS: Pantoprazole 40 MG Tab.CR PO SCH (09:08)
[2020-12-09] MEDS: Montelukast 10 MG Tab PO SCH (09:09)
--- NOTE | 2020-12-09 11:39 | PCM48HPAN ---
Post Anesthesia Note - EVALUATION WITHIN 48HRS OF ANESTHETIC Vital Signs in Normal Range: Yes Patient Participated in Evaluation: Yes Respiratory Function Stable: Yes Airway Patent: Yes Cardiovascular Function Stable: Yes Hydration Status Stable: Yes Pain Control Satisfactory: Yes (patient states she still has a lot of pain- ) Nausea and Vomiting Control Satisfactory: Yes Mental Status Recovered: Yes Vital Signs: Last Vital Signs Temp 98.4 F 12/09/20 07:21 Pulse 70 12/09/20 07:21 Resp 16 12/09/20 07:21 BP 109/51 L 12/09/20 07:21 Pulse Ox 86 L 12/09/20 08:25 - COMMENTS/OBSERVATIONS Free Text/Narrative:: states she has trouble getting in and out of the bathroom
[2020-12-09] MEDS: Aspirin 325 MG Tab.EC PO SCH ×2 (11:50→20:50)
[2020-12-09] MEDS ORDERED: Naloxone 0.4 MG/ML SDV IVPUSH PRN (12:27)
[2020-12-09] MEDS ORDERED: Ondansetron 4 MG/2 ML SDV IVPUSH PRN (12:27)
[2020-12-09] MEDS ORDERED: Bisacodyl 5 MG Tab PO PRN (12:27)
[2020-12-09] MEDS ORDERED: Docusate Sodium 100 MG Cap PO PRN (12:27)
[2020-12-09] MEDS ORDERED: Sennosides 8.6 MG Tab PO PRN (12:27)
[2020-12-09] MEDS ORDERED: Magnesium Hydroxide 400 MG/5 ML Susp 30 ML Cup PO PRN (12:27)
[2020-12-09] MEDS: Acetaminophen/HYDROcodone 325-5 MG Tab PO PRN ×2 (17:15→23:19)
[2020-12-10] MEDS: Pantoprazole 40 MG Tab.CR PO SCH (06:19)
--- NOTE | 2020-12-10 08:04 | PCM.SURGPN ---
- General Info Date of Service: 12/10/20 POD#: 2 Functional Status: Reports: Tolerating Diet, Ambulating, Urinating, Incentive Spirometry, Other (The pt has refused participation in therapy. She has walked with nursing in the halls.) - Patient Data Vitals - Most Recent: Last Vital Signs Temp 98.2 F 12/10/20 04:25 Pulse 69 12/10/20 04:25 Resp 16 12/10/20 04:25 BP 126/83 12/10/20 04:25 Pulse Ox 93 L 12/10/20 06:34 Weight - Most Recent: 189 lb 11.2 oz Lab Results Last 24 Hrs: Laboratory Results - last 24 hr 12/09/20 12/09/20 Range/Units 13:18 13:18 WBC 11.85 H (3.98-10.04) K/mm3 RBC 4.51 (3.98-5.22) M/mm3 Hgb 13.7 D (11.2-15.7) gm/dl Hct 42.8 (34.1-44.9) % MCV 94.9 H (79.4-94.8) fl MCH 30.4 (25.6-32.2) pg MCHC 32.0 L (32.2-35.5) g/dl RDW Std Deviation 44.7 (36.4-46.3) fL Plt Count 271 (182-369) K/mm3 MPV 10.7 (9.4-12.3) fl Neut % (Auto) 75.9 H (34.0-71.1) % Lymph % (Auto) 9.4 L (19.3-51.7) % [place] % (Auto) 13.2 H (4.7-12.5) % Eos % (Auto) 1.0 (0.7-5.8) Baso % (Auto) 0.3 (0.1-1.2) % Neut # (Auto) 9.00 H (1.56-6.13) K/mm3 Lymph # (Auto) 1.11 L (1.18-3.74) K/mm3 [place] # (Auto) 1.57 H (0.24-0.36) K/mm3 Eos # (Auto) 0.12 (0.04-0.36) K/mm3 Baso # (Auto) 0.03 (0.01-0.08) K/mm3 Manual Slide Review Abnormal smear Sodium 138 (136-145) mEq/L Potassium 4.2 (3.5-5.1) mEq/L Chloride 101 (98-107) mEq/L Carbon Dioxide 28 (21-32) mEq/L Anion Gap 13.2 (5-15) BUN 15 (7-18) mg/dL Creatinine 1.0 (0.55-1.02) mg/dL Est Cr Clr Drug Dosing 45.85 mL/min Estimated GFR (MDRD) 55 (>60) mL/min BUN/Creatinine Ratio 15.0 (14-18) Glucose 112 (80-115) mg/dL Calcium 8.8 (8.5-10.1) mg/dL Total Bilirubin 1.2 H (0.2-1.0) mg/dL AST 56 H (15-37) U/L ALT 49 (14-59) U/L Alkaline Phosphatase 112 (46-116) U/L Total Protein 6.2 L (6.4-8.2) g/dl Albumin 3.0 L (3.4-5.0) g/dl Globulin 3.2 gm/dL Albumin/Globulin Ratio 0.9 L (1-2) Med Orders - Current: Current Medications Hydrocodone Bitart/Acetaminophen (Acetaminophen/Hydrocodone 325-5 Mg Tab) 1 tab PO Q6H PRN PRN Reason: Pain Last Admin: 12/09/20 23:19 Dose: 1 tab Documented by: Aspirin (Aspirin 325 Mg Tab.Ec) 325 mg PO BID [facility] Last Admin: 12/09/20 20:50 Dose: 325 mg Documented by: Bisacodyl (Bisacodyl 5 Mg Tab) 5 mg PO DAILY PRN PRN Reason: Constipation Docusate Sodium (Docusate Sodium 100 Mg Cap) 100 mg PO BID PRN PRN Reason: Constipation Loratadine (Loratadine 10 Mg Tab) 10 mg PO DAILY PRN PRN Reason: Allergies Magnesium Hydroxide (Magnesium Hydroxide 400 Mg/5 Ml Susp 30 Ml Cup) 30 ml PO BID PRN PRN Reason: Constipation Montelukast Sodium (Montelukast 10 Mg Tab) 10 mg PO DAILY [facility] Last Admin: 12/09/20 09:09 Dose: 10 mg Documented by: Naloxone HCl (Naloxone 0.4 Mg/Ml Sdv) 0.1 mg IVPUSH Q5M PRN PRN Reason: Oversedation Ondansetron HCl (Ondansetron 4 Mg/2 Ml Sdv) 4 mg IVPUSH Q6H PRN PRN Reason: Nausea/Vomiting Pantoprazole Sodium (Pantoprazole 40 Mg Tab.Cr) 40 mg PO ACBREAKFAST [facility] Last Admin: 12/10/20 06:19 Dose: 40 mg Documented by: Senna (Sennosides 8.6 Mg Tab) 8.6 mg PO BID PRN PRN Reason: Constipation Discontinued Medications Acetaminophen (Acetaminophen 325 Mg Tab) 975 mg PO ONETIME [facility] Stop: 12/08/20 13:00 Last Admin: 12/08/20 11:18 Dose: 975 mg Documented by: Cefazolin Sodium (Cefazolin 1 Gm Vial) Confirm Administered Dose 2 gm .ROUTE .STK-MED ONE Stop: 12/08/20 13:24 Morphine Sulfate 8 mg/Epinephrine HCl 0.3 mg/Cefuroxime Sodium 750 mg/Ketorolac Tromethamine 30 mg/Sodium Chloride 7.9 ml 0 mg .XX ASDIRECTED PRN PRN Reason: Pain Stop: 12/08/20 18:00 Last Admin: 12/08/20 14:50 Dose: 788.3 mg Documented by: Diphenhydramine HCl (Diphenhydramine 50 Mg/Ml Sdv) 25 mg IVPUSH Q6H PRN PRN Reason: pruritis Stop: 12/08/20 18:00 Epinephrine HCl (Epinephrine 1 Mg/Ml Sdv) Confirm Administered Dose 1 mg .ROUTE .STK-MED ONE Stop: 12/08/20 09:00 Lactated Ringer's (Ringers, Lactated) 1,000 mls @ 125 mls/hr IV ASDIRECTED [facility]ALIE Stop: 12/08/20 23:00 Last Admin: 12/08/20 11:30 Dose: 125 mls/hr Documented by: Lidocaine HCl (Xylocaine-Mpf 1%) Confirm Administered Dose 4 mls @ as directed .ROUTE .STK-MED ONE Stop: 12/08/20 13:16 Lactated Ringer's (Ringers, Lactated) Confirm Administered Dose 1,000 mls @ as directed .ROUTE .STK-MED ONE Stop: 12/08/20 13:50 Lactated Ringer's (Ringers, Lactated) Confirm Administered Dose 1,000 mls @ as directed .ROUTE .STK-MED ONE Stop: 12/08/20 14:43 Lidocaine/Sodium Bicarbonate (Lidocaine 1%/Sod Bicarbonate In Ns 8.4% 1 Ml Syringe) 0.25 ml IDERM ONETIME PRN PRN Reason: Prior to IV Start Stop: 12/08/20 18:00 Last Admin: 12/08/20 11:30 Dose: 0.25 ml Documented by: Midazolam HCl (Midazolam 1 Mg/Ml 2 Ml Sdv) Confirm Administered Dose 2 mg .ROUTE .STK-MED ONE Stop: 12/08/20 13:15 Midazolam HCl (Midazolam 1 Mg/Ml 2 Ml Sdv) 2 mg IVPUSH ONETIME PRN PRN Reason: Sedation Stop: 12/08/20 18:00 Last Admin: 12/08/20 15:55 Dose: 2 mg Documented by: Miscellaneous Medication (Phenylephrine Hcl In 0.9% Nacl 1 Mg/10 Ml Syringe) Confirm Administered Dose 1 mg .ROUTE .STK-MED ONE Stop: 12/08/20 14:00 Ondansetron HCl (Ondansetron 4 Mg/2 Ml Sdv) Confirm Administered Dose 4 mg .ROUTE .STK-MED ONE Stop: 12/08/20 13:54 Ondansetron HCl (Ondansetron 4 Mg/2 Ml Sdv) 4 mg IVPUSH ONETIME PRN PRN Reason: Nausea/Vomiting Stop: 12/08/20 22:00 Oxycodone HCl (Oxycodone Er 10 Mg Tab.Er) 10 mg PO ONETIME [facility] Stop: 12/08/20 13:00 Last Admin: 12/08/20 11:18 Dose: 10 mg Documented by: Oxycodone HCl (Oxycodone 5 Mg Tab) 5 mg PO Q4H PRN PRN Reason: PAIN 2-6 Last Admin: 12/09/20 04:53 Dose: 5 mg Documented by: Oxycodone HCl (Oxycodone 5 Mg Tab) 10 mg PO Q4H PRN PRN Reason: SEVERE PAIN 7-10 Last Admin: 12/09/20 09:12 Dose: 10 mg Documented by: Pregabalin (Pregabalin 25 Mg Cap) 50 mg PO ONETIME [facility] Stop: 12/08/20 13:00 Last Admin: 12/08/20 11:18 Dose: 50 mg Documented by: Propofol (Propofol 200 Mg/20 Ml Sdv) Confirm Administered Dose 200 mg .ROUTE .STK-MED ONE Stop: 12/08/20 13:15 Propofol (Propofol 200 Mg/20 Ml Sdv) Confirm Administered Dose 200 mg .ROUTE .STK-MED ONE Stop: 12/08/20 14:54 Ropivacaine (Ropivacaine 0.5% 5 Mg/Ml 30 Ml Sdv) Confirm Administered Dose 30 ml .ROUTE .STK-MED ONE Stop: 12/08/20 09:00 Scopolamine (Scopolamine 1.5 Mg Transdermal Patch) 1.5 mg TOP ONETIME [facility] Stop: 12/08/20 13:00 Last Admin: 12/08/20 11:10 Dose: 1.5 mg Documented by: Sodium Chloride (Sodium Chloride 0.9% 10 Ml Syringe) 10 ml FLUSH ASDIRECTED PRN PRN Reason: Keep Vein Open Stop: 12/08/20 18:00 Tranexamic Acid (Tranexamic Acid 1,000 Mg/10 Ml Amp) Confirm Administered Dose 1,000 mg .ROUTE .STK-MED ONE Stop: 12/08/20 12:18 Last Admin: 12/08/20 14:57 Dose: 1,000 mg Documented by: Vancomycin HCl (Vancomycin 1 Gm Sdv) Confirm Administered Dose 1 gm .ROUTE .STK- MED ONE Stop: 12/08/20 12:18 Last Admin: 12/08/20 14:57 Dose: 1 gm Documented by: - Exam Wound/Incisions: Dressing Dry and Intact General: Alert, Cooperative, No Acute Distress Lungs: Normal Respiratory Effort Extremities: Other (NVS intact for LLE. Joe's negative for LLE.) Sepsis Event Note - Evaluation Sepsis Screening Result: No Definite Risk - Focused Exam Vital Signs: Vital Signs Temp Pulse Resp BP Pulse Ox Pulse Ox 12/10/20 06:34 93 L 12/10/20 04:25 98.2 F 69 16 126/83 94 L 12/09/20 23:18 98.2 F 80 16 118/93 H 98 12/09/20 20:49 69 88/70 L 94 L 12/09/20 20:33 99.0 F 70 16 86/67 L 89 L 12/09/20 20:08 90 L - Problem List Review Problem List Initiated/Reviewed/Updated: Yes - My Orders Last 24 Hours: Active Orders 24 hr Category Date Time Status Patient Status [ADT] Routine ADT 12/09/20 12:32 Active Ambulate [RC] 09,13,20 Care 12/09/20 12:27 Active Antiembolic Devices [RC] BID Care 12/09/20 12:36 Active Communication Order [RC] ASDIRECTED Care 12/09/20 08:07 Active May Shower [RC] ASDIRECTED Care 12/09/20 12:27 Active Ready for Discharge [RC] PER UNIT ROUTINE Care 12/09/20 08:09 Active Up to Chair [RC] BID Care 12/09/20 12:27 Active OT Evaluation and Treatment [CONS] Routine Cons 12/09/20 12:27 Active PT Evaluation and Treatment [CONS] Routine Cons 12/09/20 12:37 Active Acetaminophen/HYDROcodone [[place] 325-5 MG] Med 12/09/20 16:06 Active 1 tab PO Q6H PRN Aspirin [Ecotrin] Med 12/09/20 11:30 Active 325 mg PO BID Docusate Sodium [Colace] Med 12/09/20 12:27 Active 100 mg PO BID PRN Magnesium Hydroxide [Milk of Magnesia] Med 12/09/20 12:27 Active 30 ml PO BID PRN Montelukast [Singulair] Med 12/09/20 09:00 Active 10 mg PO DAILY Naloxone [Narcan] Med 12/09/20 12:27 Active 0.1 mg IVPUSH Q5M PRN Ondansetron [Zofran] Med 12/09/20 12:27 Active 4 mg IVPUSH Q6H PRN Sennosides [Senna] Med 12/09/20 12:27 Active 8.6 mg PO BID PRN bisacodyL [Dulcolax] Med 12/09/20 12:27 Active 5 mg PO DAILY PRN Antiembolic Hose [OM.PC] Per Unit Routine Oth 12/09/20 12:36 Ordered Ice Therapy [OM.PC] Per Unit Routine Oth 12/09/20 12:35 Ordered Sequential Compression Device [OM.PC] Per Unit Routine Oth 12/09/20 12:42 Ordered Medication Orders Hydrocodone Bitart/Acetaminophen (Acetaminophen/Hydrocodone 325-5 Mg Tab) 1 tab PO Q6H PRN PRN Reason: Pain Last Admin: 12/09/20 23:19 Dose: 1 tab Documented by: Admin: 12/09/20 17:15 Dose: 1 tab Documented by: BAHMAN Aspirin (Aspirin 325 Mg Tab.Ec) 325 mg PO BID [facility] Last Admin: 12/09/20 20:50 Dose: 325 mg Documented by: Admin: 12/09/20 11:50 Dose: 325 mg Documented by: NIK Bisacodyl (Bisacodyl 5 Mg Tab) 5 mg PO DAILY PRN PRN Reason: Constipation Docusate Sodium (Docusate Sodium 100 Mg Cap) 100 mg PO BID PRN PRN Reason: Constipation Loratadine (Loratadine 10 Mg Tab) 10 mg PO DAILY PRN PRN Reason: Allergies Magnesium Hydroxide (Magnesium Hydroxide 400 Mg/5 Ml Susp 30 Ml Cup) 30 ml PO BID PRN PRN Reason: Constipation Montelukast Sodium (Montelukast 10 Mg Tab) 10 mg PO DAILY [facility] Last Admin: 12/09/20 09:09 Dose: 10 mg Documented by: BAHMAN Naloxone HCl (Naloxone 0.4 Mg/Ml Sdv) 0.1 mg IVPUSH Q5M PRN PRN Reason: Oversedation Ondansetron HCl (Ondansetron 4 Mg/2 Ml Sdv) 4 mg IVPUSH Q6H PRN PRN Reason: Nausea/Vomiting Pantoprazole Sodium (Pantoprazole 40 Mg Tab.Cr) 40 mg PO ACBREAKFAST [facility] Last Admin: 12/10/20 06:19 Dose: 40 mg Documented by: Admin: 12/09/20 09:08 Dose: 40 mg Documented by: BAHMAN Senna (Sennosides 8.6 Mg Tab) 8.6 mg PO BID PRN PRN Reason: Constipation - Assessment Assessment (Free Text/Narrative):: POD#2 - left TKA - Plan Plan (Free Text/Narrative):: 1. Suspect discharge to [place] today. 2. 325mg ASA PO BID, frequent mobility, TEDs. 3. Discussed importance of therapy participation with pt today. The pt's case was discussed with Dr. Coello.
[2020-12-10] MEDS: Montelukast 10 MG Tab PO SCH (09:37)
[2020-12-10] MEDS: Aspirin 325 MG Tab.EC PO SCH ×2 (09:37→20:47)
[2020-12-10] MEDS: Acetaminophen/HYDROcodone 325-5 MG Tab PO PRN ×2 (15:10→21:10)
[2020-12-11] MEDS: Acetaminophen/HYDROcodone 325-5 MG Tab PO PRN (03:50)
[2020-12-11] MEDS: Pantoprazole 40 MG Tab.CR PO SCH (05:49)
[2020-12-11] MEDS: Aspirin 325 MG Tab.EC PO SCH (10:19)
[2020-12-11] MEDS: Montelukast 10 MG Tab PO SCH (10:19)
--- NOTE | 2020-12-11 10:46 | PCM.SURGPN ---
- General Info Date of Service: 12/11/20 POD#: 3 Functional Status: Reports: Pain Controlled, Tolerating Diet, Ambulating, Urinating, Incentive Spirometry, Other (Nursing states the pt slept well and has been agreeable to mobility activities.) - Patient Data Vitals - Most Recent: Last Vital Signs Temp 98.1 F 12/11/20 08:29 Pulse 72 12/11/20 08:29 Resp 16 12/11/20 08:29 BP 154/66 H 12/11/20 08:29 Pulse Ox 94 L 12/11/20 08:29 Weight - Most Recent: 187 lb 3.2 oz I&O - Last 24 Hours: Intake & Output 12/10/20 12/11/20 12/11/20 22:59 06:59 14:59 Intake Total 770 Balance 770 Lab Results Last 24 Hrs: Laboratory Results - last 24 hr 12/11/20 Range/Units 05:50 SARS-CoV-2 RNA (PHAN) Negative (NEGATIVE) Med Orders - Current: Current Medications Hydrocodone Bitart/Acetaminophen (Acetaminophen/Hydrocodone 325-5 Mg Tab) 1 tab PO Q6H PRN PRN Reason: Pain Last Admin: 12/11/20 03:50 Dose: 1 tab Documented by: Aspirin (Aspirin 325 Mg Tab.Ec) 325 mg PO BID [facility] Last Admin: 12/11/20 10:19 Dose: 325 mg Documented by: Bisacodyl (Bisacodyl 5 Mg Tab) 5 mg PO DAILY PRN PRN Reason: Constipation Docusate Sodium (Docusate Sodium 100 Mg Cap) 100 mg PO BID PRN PRN Reason: Constipation Loratadine (Loratadine 10 Mg Tab) 10 mg PO DAILY PRN PRN Reason: Allergies Magnesium Hydroxide (Magnesium Hydroxide 400 Mg/5 Ml Susp 30 Ml Cup) 30 ml PO BID PRN PRN Reason: Constipation Montelukast Sodium (Montelukast 10 Mg Tab) 10 mg PO DAILY [facility] Last Admin: 12/11/20 10:19 Dose: 10 mg Documented by: Naloxone HCl (Naloxone 0.4 Mg/Ml Sdv) 0.1 mg IVPUSH Q5M PRN PRN Reason: Oversedation Ondansetron HCl (Ondansetron 4 Mg/2 Ml Sdv) 4 mg IVPUSH Q6H PRN PRN Reason: Nausea/Vomiting Pantoprazole Sodium (Pantoprazole 40 Mg Tab.Cr) 40 mg PO ACBREAKFAST [facility] Last Admin: 12/11/20 05:49 Dose: 40 mg Documented by: Senna (Sennosides 8.6 Mg Tab) 8.6 mg PO BID PRN PRN Reason: Constipation Discontinued Medications Acetaminophen (Acetaminophen 325 Mg Tab) 975 mg PO ONETIME [facility] Stop: 12/08/20 13:00 Last Admin: 12/08/20 11:18 Dose: 975 mg Documented by: Cefazolin Sodium (Cefazolin 1 Gm Vial) Confirm Administered Dose 2 gm .ROUTE .STK-MED ONE Stop: 12/08/20 13:24 Morphine Sulfate 8 mg/Epinephrine HCl 0.3 mg/Cefuroxime Sodium 750 mg/Ketorolac Tromethamine 30 mg/Sodium Chloride 7.9 ml 0 mg .XX ASDIRECTED PRN PRN Reason: Pain Stop: 12/08/20 18:00 Last Admin: 12/08/20 14:50 Dose: 788.3 mg Documented by: Diphenhydramine HCl (Diphenhydramine 50 Mg/Ml Sdv) 25 mg IVPUSH Q6H PRN PRN Reason: pruritis Stop: 12/08/20 18:00 Epinephrine HCl (Epinephrine 1 Mg/Ml Sdv) Confirm Administered Dose 1 mg .ROUTE .STK-MED ONE Stop: 12/08/20 09:00 Lactated Ringer's (Ringers, Lactated) 1,000 mls @ 125 mls/hr IV ASDIRECTED [facility] Stop: 12/08/20 23:00 Last Admin: 12/08/20 11:30 Dose: 125 mls/hr Documented by: Lidocaine HCl (Xylocaine-Mpf 1%) Confirm Administered Dose 4 mls @ as directed .ROUTE .STK-MED ONE Stop: 12/08/20 13:16 Lactated Ringer's (Ringers, Lactated) Confirm Administered Dose 1,000 mls @ as directed .ROUTE .STK-MED ONE Stop: 12/08/20 13:50 Lactated Ringer's (Ringers, Lactated) Confirm Administered Dose 1,000 mls @ as directed .ROUTE .STK-MED ONE Stop: 12/08/20 14:43 Lidocaine/Sodium Bicarbonate (Lidocaine 1%/Sod Bicarbonate In Ns 8.4% 1 Ml Syringe) 0.25 ml IDERM ONETIME PRN PRN Reason: Prior to IV Start Stop: 12/08/20 18:00 Last Admin: 12/08/20 11:30 Dose: 0.25 ml Documented by: Midazolam HCl (Midazolam 1 Mg/Ml 2 Ml Sdv) Confirm Administered Dose 2 mg .ROUTE .STK-MED ONE Stop: 12/08/20 13:15 Midazolam HCl (Midazolam 1 Mg/Ml 2 Ml Sdv) 2 mg IVPUSH ONETIME PRN PRN Reason: Sedation Stop: 12/08/20 18:00 Last Admin: 12/08/20 15:55 Dose: 2 mg Documented by: Miscellaneous Medication (Phenylephrine Hcl In 0.9% Nacl 1 Mg/10 Ml Syringe) Confirm Administered Dose 1 mg .ROUTE .STK-MED ONE Stop: 12/08/20 14:00 Ondansetron HCl (Ondansetron 4 Mg/2 Ml Sdv) Confirm Administered Dose 4 mg .ROUTE .STK-MED ONE Stop: 12/08/20 13:54 Ondansetron HCl (Ondansetron 4 Mg/2 Ml Sdv) 4 mg IVPUSH ONETIME PRN PRN Reason: Nausea/Vomiting Stop: 12/08/20 22:00 Oxycodone HCl (Oxycodone Er 10 Mg Tab.Er) 10 mg PO ONETIME [facility] Stop: 12/08/20 13:00 Last Admin: 12/08/20 11:18 Dose: 10 mg Documented by: Oxycodone HCl (Oxycodone 5 Mg Tab) 5 mg PO Q4H PRN PRN Reason: PAIN 2-6 Last Admin: 12/09/20 04:53 Dose: 5 mg Documented by: Oxycodone HCl (Oxycodone 5 Mg Tab) 10 mg PO Q4H PRN PRN Reason: SEVERE PAIN 7-10 Last Admin: 12/09/20 09:12 Dose: 10 mg Documented by: Pregabalin (Pregabalin 25 Mg Cap) 50 mg PO ONETIME [facility] Stop: 12/08/20 13:00 Last Admin: 12/08/20 11:18 Dose: 50 mg Documented by: Propofol (Propofol 200 Mg/20 Ml Sdv) Confirm Administered Dose 200 mg .ROUTE .STK-MED ONE Stop: 12/08/20 13:15 Propofol (Propofol 200 Mg/20 Ml Sdv) Confirm Administered Dose 200 mg .ROUTE .STK-MED ONE Stop: 12/08/20 14:54 Ropivacaine (Ropivacaine 0.5% 5 Mg/Ml 30 Ml Sdv) Confirm Administered Dose 30 ml .ROUTE .STK-MED ONE Stop: 12/08/20 09:00 Scopolamine (Scopolamine 1.5 Mg Transdermal Patch) 1.5 mg TOP ONETIME [facility]ALIE Stop: 12/08/20 13:00 Last Admin: 12/08/20 11:10 Dose: 1.5 mg Documented by: Sodium Chloride (Sodium Chloride 0.9% 10 Ml Syringe) 10 ml FLUSH ASDIRECTED PRN PRN Reason: Keep Vein Open Stop: 12/08/20 18:00 Tranexamic Acid (Tranexamic Acid 1,000 Mg/10 Ml Amp) Confirm Administered Dose 1,000 mg .ROUTE .STK-MED ONE Stop: 12/08/20 12:18 Last Admin: 12/08/20 14:57 Dose: 1,000 mg Documented by: Vancomycin HCl (Vancomycin 1 Gm Sdv) Confirm Administered Dose 1 gm .ROUTE .STK- MED ONE Stop: 12/08/20 12:18 Last Admin: 12/08/20 14:57 Dose: 1 gm Documented by: - Exam Wound/Incisions: Dressing Dry and Intact General: Alert, Cooperative, No Acute Distress Lungs: Normal Respiratory Effort Extremities: Other (NVS intact for BLE. Joe's negative.) Sepsis Event Note - Evaluation Sepsis Screening Result: No Definite Risk - Focused Exam Vital Signs: Vital Signs Temp Pulse Resp BP Pulse Ox 12/11/20 08:29 98.1 F 72 16 154/66 H 94 L 12/11/20 03:51 98.4 F 71 12 119/66 95 12/11/20 00:50 97.9 F 69 12 120/58 L 94 L - Problem List Review Problem List Initiated/Reviewed/Updated: Yes - My Orders Last 24 Hours: Active Orders 24 hr Category Date Time Status Communication Order [RC] ASDIRECTED Care 12/10/20 12:56 Active Communication Order [RC] ASDIRECTED Care 12/11/20 06:54 Active Ready for Discharge [RC] PER UNIT ROUTINE Care 12/11/20 06:54 Active Medication Orders Hydrocodone Bitart/Acetaminophen (Acetaminophen/Hydrocodone 325-5 Mg Tab) 1 tab PO Q6H PRN PRN Reason: Pain Last Admin: 12/11/20 03:50 Dose: 1 tab Documented by: Admin: 12/10/20 21:10 Dose: 1 tab Documented by: Admin: 12/10/20 15:10 Dose: 1 tab Documented by: Admin: 12/09/20 23:19 Dose: 1 tab Documented by: Admin: 12/09/20 17:15 Dose: 1 tab Documented by: BAHMAN Aspirin (Aspirin 325 Mg Tab.Ec) 325 mg PO BID [facility] Last Admin: 12/11/20 10:19 Dose: 325 mg Documented by: Admin: 12/10/20 20:47 Dose: 325 mg Documented by: Admin: 12/10/20 09:37 Dose: 325 mg Documented by: Admin: 12/09/20 20:50 Dose: 325 mg Documented by: Admin: 12/09/20 11:50 Dose: 325 mg Documented by: NIK Bisacodyl (Bisacodyl 5 Mg Tab) 5 mg PO DAILY PRN PRN Reason: Constipation Docusate Sodium (Docusate Sodium 100 Mg Cap) 100 mg PO BID PRN PRN Reason: Constipation Loratadine (Loratadine 10 Mg Tab) 10 mg PO DAILY PRN PRN Reason: Allergies Magnesium Hydroxide (Magnesium Hydroxide 400 Mg/5 Ml Susp 30 Ml Cup) 30 ml PO BID PRN PRN Reason: Constipation Montelukast Sodium (Montelukast 10 Mg Tab) 10 mg PO DAILY [facility] Last Admin: 12/11/20 10:19 Dose: 10 mg Documented by: Admin: 12/10/20 09:37 Dose: 10 mg Documented by: Admin: 12/09/20 09:09 Dose: 10 mg Documented by: BAHMAN Naloxone HCl (Naloxone 0.4 Mg/Ml Sdv) 0.1 mg IVPUSH Q5M PRN PRN Reason: Oversedation Ondansetron HCl (Ondansetron 4 Mg/2 Ml Sdv) 4 mg IVPUSH Q6H PRN PRN Reason: Nausea/Vomiting Pantoprazole Sodium (Pantoprazole 40 Mg Tab.Cr) 40 mg PO ACBREAKFAST [facility] Last Admin: 12/11/20 05:49 Dose: 40 mg Documented by: Admin: 12/10/20 06:19 Dose: 40 mg Documented by: Admin: 12/09/20 09:08 Dose: 40 mg Documented by: BAHMAN [place]on (Sennosides 8.6 Mg Tab) 8.6 mg PO BID PRN PRN Reason: Constipation - Assessment Assessment (Free Text/Narrative):: POD#3 - s/p left TKA - Plan Plan (Free Text/Narrative):: 1. Pt has made improvements with mobility. 2. D/C to [facility] for continued therapy. 3. 325 mg ASA PO BID, frequent mobility, TEDs. 4. [place] for pain management. Pt was with increased fatigue and confusion with oxycodone use. The pt's case was discussed with Dr. Coello.
[2020-12-11 13:22] VITALS: BP 126/62; PULSE 79
--- NOTE | 2020-12-16 13:14 | PCM.DCSUM1 ---
Discharge Summary - Hospital Course Brief History: Maris is a 70 yo female who underwent left TKA with Dr. Coello on 12-08-2020. The procedure was completed under spinal anesthesia and a post- operative adductor canal block was provided. The pt tolerated the procedure well and was admitted to the Medical-Surgical Unit for extended floor recovery. The pt was slow to progress with therapies and on POD#1, decision was made for the patient to be admitted to Hospital under Observation status. The pt's Hgb on POD#1 was 13.7. On POD#1, 325mg ASA BID was initiated for VTE prophylaxis. SCDs and TEDs were also ordered. A Mepilex dressing was placed at the incision site at the time of surgery and remained clean and dry. The pt participated in P.T. and O.T. The pt was allowed to WBAT. On POD#3, the pt was deemed appropriate to discharge to [facility] for continued monitoring and therapies. - Discharge Data Discharge Date: 12/11/20 Discharge Disposition: Home, Self-Care 01 Condition: Good - Referral to Home Health Primary Care Physician: Sydnie Weiss NP - Patient Summary/Data Operative Procedure(s) Performed: left total knee arthroplasty with [employer]ee [employer] Consults: Consultations 12/09/20 12:27 OT Evaluation and Treatment [CONS] Routine 12/09/20 12:37 PT Evaluation and Treatment [CONS] Routine - Patient Instructions Diet: Usual Diet as Tolerated Activity: Apply Ice, As Tolerated, Elevate Extremity, Full Weight Bearing Driving: Do Not Drive Showering/Bathing: May Shower Wound/Incision Care: Keep Operative Site/Wound Site Clean and Dry, Do NOT Change Dressing Notify Provider of: Fever, Increased Pain, Swelling and Redness, Drainage, Nausea and/or Vomiting Other/Special Instructions: Please get up and moving around EVERY HOUR while awake. This helps to prevent blood clots. Please use your walker and have help with mobility as needed. Take a short walk in your home every hour while awake. Starting on 12-09-2020, please take 325mg aspirin TWICE daily. The aspirin is being used for blood clot prevention and not for pain management so please do not miss a dose of the medication. A prescription for omeprazole 40 mg was sent to the pharmacy for you. This medication will help protect your stomach while using the aspirin. At home, please complete the exercises that you learned after surgery. Schedule for physical therapy. Use the pain medication as needed. The medication may cause drowsiness and constipation. Contact your primary care provider for instructions if you are constipated. You may use a stool softener like docusate sodium or Colace 100mg twice daily and/or a laxative like Miralax daily for constipation. Increase your water and fiber intake while you are using the pain medication. Please discontinue use of the prescription pain medication as soon as able. The goal is to use the least amount of prescription pain medication as possible and to discontinue use of the prescription pain medication as soon as possible. Please do not use other medications that may cause drowsiness (other pain medications, anxiety pills, cold medications, sleeping pills, etc) while using the prescription pain medication. Do not use alcohol while using the pain medication. You may use acetaminophen or Tylenol for pain management, however, please ensure you are not using over 4000 mg or 4 grams of acetaminophen per day. At this time, please do not use ibuprofen (Motrin, Advil) or naproxen (Aleve) for pain management as you are using the aspirin. When the aspirin course is completed in 4 to 6 weeks, you could use ibuprofen or naproxen for pain management (if this is allowed by your primary care provider). On the day following surgery, you may remove the KATELYNN bandage on the surgical limb and put on the OMAR hose. If you can tolerate use of the OMAR hose, wear them during the day and remove them at night. Elevate the limb to decrease swelling. Elevating the limb above the level of the heart will be most effective. Elevating the foot higher than the knee will help to decrease swelling in the foot. Place ice to the area often. Place a towel between your skin and the blue pad. Please keep the dressing in place until follow-up. As long as the dressing is sealed and without a hole, the dressing is water resistant and therefore, you may have a shower. Please do not soak that dressing in a tub, pool, whirlpool. Notify the Clinic if the dressing becomes saturated. Increase your protein intake while you are healing. It is normal to have swelling and bruising at the surgical site, as well as above and below the surgical site. If you have diabetes or have been instructed by your primary care provider to monitor your blood sugars, please closely monitor your sugars. Notify your primary care provider of the values. Elevated sugars can increase the risk of infection. If you have questions or concerns, please call [phone] and leave a message for the nurse. Your call will be returned. Prescriptions for oxycodone, aspirin and omeprazole were sent to [facility] in [place] for you for use after surgery. You may use the as pirin and omeprazole that you previously picked up. PLEASE DO NOT use oxycodone at this time. Your energy and ability to participate in therapy is better with use of [place] (hydrocodone) than with use of oxycodone and therefore, do NOT use oxycodone at this time. Use [place] for pain management. - Discharge Plan *PRESCRIPTION DRUG MONITORING PROGRAM REVIEWED*: No *COPY OF PRESCRIPTION DRUG MONITORING REPORT IN PATIENT TAMI: No Prescriptions/Med Rec: Aspirin [Ecotrin EC] 325 mg PO BID #84 tab.ec Acetaminophen/HYDROcodone [[place] 325-5 MG] 1 tab PO Q6H PRN #20 tablet PRN Reason: Pain Omeprazole 40 mg PO DAILY #40 capsule. Home Medications: Home Meds Bile Acid Factor 1 dose PO DAILY 12/05/20 [History] Cholecalciferol (Vitamin D3) [Vitamin D3] 5,000 unit PO DAILY 12/05/20 [History] Cyanocobalamin (Vitamin B-12) [Vitamin B-12] 1,000 mcg PO DAILY 12/05/20 [History] Fexofenadine HCl [Darleen Allergy] 60 mg PO DAILY PRN 12/05/20 [History] Ibs Support 1 dose PO DAILY 12/05/20 [History] Melatonin 1 mg PO BEDTIME PRN 12/05/20 [History] Montelukast [Singulair] 10 mg PO BEDTIME 12/05/20 [History] Nystatin [Nystatin Crm] 1 dose TOP ASDIRECTED PRN 12/05/20 [History] Omeprazole 40 mg PO DAILY #40 capsule. 12/05/20 [Rx] Acetaminophen/HYDROcodone [[place] 325-5 MG] 1 tab PO Q6H PRN #20 tablet 12/10/20 [Rx] Aspirin [Ecotrin EC] 325 mg PO BID #84 tab.ec 12/10/20 [Rx] Docusate Sodium [Colace] 100 mg PO BID PRN cap 12/10/20 [Rx] Magnesium Hydroxide [Milk of Magnesia] 30 ml PO BID PRN cup 12/10/20 [Rx] Sennosides [Senna] 8.6 mg PO BID PRN tablet 12/10/20 [Rx] bisacodyL [Dulcolax] 5 mg PO DAILY PRN tablet 12/10/20 [Rx] Patient Handouts: Total Knee Replacement, Care After, [id number] Referrals: Juliette Weaver MD [Physician] - (Follow up as needed) Charleen Freed PA-C [Physician Matrix Supervisor] - 12/16/20 2:30 pm (please attend the scheduled follow up appointment with Charleen Freed as listed ) - Discharge Summary/Plan Comment DC Time >30 min.: No - Patient Data Vitals - Most Recent: Last Vital Signs Temp 98.1 F 12/11/20 08:29 Pulse 79 12/11/20 13:18 Resp 16 12/11/20 08:29 BP 126/62 12/11/20 13:18 Pulse Ox 92 L 12/11/20 13:18 Weight - Most Recent: 187 lb 3.2 oz Med Orders - Current: Current Medications Discontinued Medications Acetaminophen (Acetaminophen 325 Mg Tab) 975 mg PO ONETIME [facility] Stop: 12/08/20 13:00 Last Admin: 12/08/20 11:18 Dose: 975 mg Documented by: Hydrocodone Bitart/Acetaminophen (Acetaminophen/Hydrocodone 325-5 Mg Tab) 1 tab PO Q6H PRN PRN Reason: Pain Last Admin: 12/11/20 03:50 Dose: 1 tab Documented by: Aspirin (Aspirin 325 Mg Tab.Ec) 325 mg PO BID NATALIE Last Admin: 12/11/20 10:19 Dose: 325 mg Documented by: Bisacodyl (Bisacodyl 5 Mg Tab) 5 mg PO DAILY PRN PRN Reason: Constipation Cefazolin Sodium (Cefazolin 1 Gm Vial) Confirm Administered Dose 2 gm .ROUTE .STK-MED ONE Stop: 12/08/20 13:24 Morphine Sulfate 8 mg/Epinephrine HCl 0.3 mg/Cefuroxime Sodium 750 mg/Ketorolac Tromethamine 30 mg/Sodium Chloride 7.9 ml 0 mg .XX ASDIRECTED PRN PRN Reason: Pain Stop: 12/08/20 18:00 Last Admin: 12/08/20 14:50 Dose: 788.3 mg Documented by: Diphenhydramine HCl (Diphenhydramine 50 Mg/Ml Sdv) 25 mg IVPUSH Q6H PRN PRN Reason: pruritis Stop: 12/08/20 18:00 Docusate Sodium (Docusate Sodium 100 Mg Cap) 100 mg PO BID PRN PRN Reason: Constipation Epinephrine HCl (Epinephrine 1 Mg/Ml Sdv) Confirm Administered Dose 1 mg .ROUTE .STK-MED ONE Stop: 12/08/20 09:00 Lactated Ringer's (Ringers, Lactated) 1,000 mls @ 125 mls/hr IV ASDIRECTED NATALIE Stop: 12/08/20 23:00 Last Admin: 12/08/20 11:30 Dose: 125 mls/hr Documented by: Lidocaine HCl (Xylocaine-Mpf 1%) Confirm Administered Dose 4 mls @ as directed .ROUTE .STK-MED ONE Stop: 12/08/20 13:16 Lactated Ringer's (Ringers, Lactated) Confirm Administered Dose 1,000 mls @ as directed .ROUTE .STK-MED ONE Stop: 12/08/20 13:50 Lactated Ringer's (Ringers, Lactated) Confirm Administered Dose 1,000 mls @ as directed .ROUTE .STK-MED ONE Stop: 12/08/20 14:43 Lidocaine/Sodium Bicarbonate (Lidocaine 1%/Sod Bicarbonate In Ns 8.4% 1 Ml Syringe) 0.25 ml IDERM ONETIME PRN PRN Reason: Prior to IV Start Stop: 12/08/20 18:00 Last Admin: 12/08/20 11:30 Dose: 0.25 ml Documented by: Loratadine (Loratadine 10 Mg Tab) 10 mg PO DAILY PRN PRN Reason: Allergies Magnesium Hydroxide (Magnesium Hydroxide 400 Mg/5 Ml Susp 30 Ml Cup) 30 ml PO BID PRN PRN Reason: Constipation Midazolam HCl (Midazolam 1 Mg/Ml 2 Ml Sdv) Confirm Administered Dose 2 mg .ROUTE .STK-MED ONE Stop: 12/08/20 13:15 Midazolam HCl (Midazolam 1 Mg/Ml 2 Ml Sdv) 2 mg IVPUSH ONETIME PRN PRN Reason: Sedation Stop: 12/08/20 18:00 Last Admin: 12/08/20 15:55 Dose: 2 mg Documented by: Miscellaneous Medication (Phenylephrine Hcl In 0.9% Nacl 1 Mg/10 Ml Syringe) Confirm Administered Dose 1 mg .ROUTE .STK-MED ONE Stop: 12/08/20 14:00 Montelukast Sodium (Montelukast 10 Mg Tab) 10 mg PO DAILY [facility] Last Admin: 12/11/20 10:19 Dose: 10 mg Documented by: Naloxone HCl (Naloxone 0.4 Mg/Ml Sdv) 0.1 mg IVPUSH Q5M PRN PRN Reason: Oversedation Ondansetron HCl (Ondansetron 4 Mg/2 Ml Sdv) Confirm Administered Dose 4 mg .ROUTE .STK-MED ONE Stop: 12/08/20 13:54 Ondansetron HCl (Ondansetron 4 Mg/2 Ml Sdv) 4 mg IVPUSH ONETIME PRN PRN Reason: Nausea/Vomiting Stop: 12/08/20 22:00 Ondansetron HCl (Ondansetron 4 Mg/2 Ml Sdv) 4 mg IVPUSH Q6H PRN PRN Reason: Nausea/Vomiting Oxycodone HCl (Oxycodone Er 10 Mg Tab.Er) 10 mg PO ONETIME [facility] Stop: 12/08/20 13:00 Last Admin: 12/08/20 11:18 Dose: 10 mg Documented by: Oxycodone HCl (Oxycodone 5 Mg Tab) 5 mg PO Q4H PRN PRN Reason: PAIN 2-6 Last Admin: 12/09/20 04:53 Dose: 5 mg Documented by: Oxycodone HCl (Oxycodone 5 Mg Tab) 10 mg PO Q4H PRN PRN Reason: SEVERE PAIN 7-10 Last Admin: 12/09/20 09:12 Dose: 10 mg Documented by: Pantoprazole Sodium (Pantoprazole 40 Mg Tab.Cr) 40 mg PO ACBREAKFAST [facility] Last Admin: 12/11/20 05:49 Dose: 40 mg Documented by: Pregabalin (Pregabalin 25 Mg Cap) 50 mg PO ONETIME [facility] Stop: 12/08/20 13:00 Last Admin: 12/08/20 11:18 Dose: 50 mg Documented by: Propofol (Propofol 200 Mg/20 Ml Sdv) Confirm Administered Dose 200 mg .ROUTE .STK-MED ONE Stop: 12/08/20 13:15 Propofol (Propofol 200 Mg/20 Ml Sdv) Confirm Administered Dose 200 mg .ROUTE .STK-MED ONE Stop: 12/08/20 14:54 Ropivacaine (Ropivacaine 0.5% 5 Mg/Ml 30 Ml Sdv) Confirm Administered Dose 30 ml .ROUTE .STK-MED ONE Stop: 12/08/20 09:00 Scopolamine (Scopolamine 1.5 Mg Transdermal Patch) 1.5 mg TOP ONETIME NATALIE Stop: 12/08/20 13:00 Last Admin: 12/08/20 11:10 Dose: 1.5 mg Documented by: Senna (Sennosides 8.6 Mg Tab) 8.6 mg PO BID PRN PRN Reason: Constipation Sodium Chloride (Sodium Chloride 0.9% 10 Ml Syringe) 10 ml FLUSH ASDIRECTED PRN PRN Reason: Keep Vein Open Stop: 12/08/20 18:00 Tranexamic Acid (Tranexamic Acid 1,000 Mg/10 Ml Amp) Confirm Administered Dose 1,000 mg .ROUTE .STK-MED ONE Stop: 12/08/20 12:18 Last Admin: 12/08/20 14:57 Dose: 1,000 mg Documented by: Vancomycin HCl (Vancomycin 1 Gm Sdv) Confirm Administered Dose 1 gm .ROUTE .STK- MED ONE Stop: 12/08/20 12:18 Last Admin: 12/08/20 14:57 Dose: 1 gm Documented by:
--- NOTE | 2020-12-26 05:37 | OR ---
DATE OF OPERATION: 12/08/2020 SURGEON: Stuart Coello MD OPERATION PERFORMED: Left total knee arthroplasty with [place] [employer] robot[employer]. PREOPERATIVE DIAGNOSIS: Left knee osteoarthrosis. POSTOPERATIVE DIAGNOSIS: Left knee osteoarthrosis. ANESTHESIA: Local MAC with spinal. ANESTHESIA PROVIDER: Francia Gonzáles. ASSISTANTS: Charleen Freed PA-C and Amy Thornton LPN. ESTIMATED BLOOD LOSS: 5 mL. COMPLICATIONS: None. CONDITION: Stable. IMPLANT: 1. [place] size 3 press-fit femur. 2. Brice size 3 press-fit tibial baseplate. 3. Brice size 3, 9 mm CS polyethylene insert. 4. Brice size 29 x 9 mm cemented asymmetric patella. DESCRIPTION OF PROCEDURE: The patient was identified in the preoperative holding area. Proper site was marked and identified by the surgeon. The patient was taken back to the operating theater where after adequate anesthesia, the patient's left lower extremity had a nonsterile tourniquet applied, and was then sterilely prepped and draped in the usual sterile fashion. OR time-out was performed. The patient received 2 g IV Ancef. At this time, the leg javier boot was applied to the left lower extremity, was then exsanguinated, and tourniquet was insufflated to 250 mmHg. Standard anterior incision was made. Anterior medial parapatellar arthrotomy was created. Deep fibers of the MCL were raised and anterior fat pad was resected. Attention was turned to the patella. Patella measured a 21 and resected to a 13 for a 29 x 9 mm patella. Drill holes were then drilled. The patient was noted to have soft patellar bone, so we did decide to cement it. At this time, attention was turned to putting two 4-0 Schanz pins in transitionally in the femur and then 2 on the tibia 3 fingerbreadths below the tibial tubercle for the Brice Lazaro robotic arrays. Checkpoints were placed on the femur and tibia. Hip center rotation was obtained. Medial and lateral malleoli were marked. At this time, 40 points was taken off the femur and the tibia for the Brice Lazaro robotic plan. The patient's knee was brought into full extension. Varus and valgus stresses were applied in 90 degrees flexion. Brice Lazaro robotic plan was then done for this patient with 19 mm flexion and extension gaps. [employer] robotic arm was brought in. The straight saw blade was then used for the tibial cut, the anterior femoral cut, and the posterior femoral cut. Saw blade was then switched, and the posterior chamfer cut as well as distal femoral cut were completed and found to be adequate. Medial and lateral meniscus were resected. Posterior osteophytes were removed. At this time, a size 3 base plate was placed and was found to have adequate coverage. A size 3 femur was placed. The patient's knee was brought into full extension with no signs of liftoff and no varus-valgus instability with a 9 mm trial. At this time, drill holes were drilled. Tibia was stamped and drilled in proper rotation. Cement was mixed on the back table for the patella. A size 3 tibial component was impacted into place, size 3 femur, femoral component was impacted into place, 9 mm CS polyethylene insert was impacted. The patient's knee was brought into full extension. A 29 x 9 mm patella was cemented into place. 1 L pulse lavage irrigation with Ancef was irrigated through the knee along with 400 mL of Irrisept irrigation. Periarticular injection was completed. Topical tranexamic acid and vancomycin powder were applied. Once the cement was hardened, a #2 barbed suture was used for closure of the medial parapatellar arthrotomy. 2-0 Vicryl and Stratafix were used for subcutaneous closure, and Prineo was used for skin closure. The patient had a sterile soft dressing applied and sent to the PACU in stable condition. All the 4-0 Schanz pins and check points were removed before closure. MMODAL /[id number]
== END 2020-12-11 14:10 | disposition home or self-care (01) ==
LOC: JD.SDS 11:03 → JD.MS 16:55 → JD.SDS 12-09 12:32 → JD.MS 12-09 12:32
PROVIDERS: ADMIT Orthopaedic Surgery; ATTEND Orthopaedic Surgery
DX: M17.12 Unilateral primary osteoarthritis, left knee (principal); Z20.822 Contact with and (suspected) exposure to COVID-19; M25.762 Osteophyte, left knee; Z79.82 Long term (current) use of aspirin; Z79.899 Other long term (current) drug therapy; E78.00 Pure hypercholesterolemia, unspecified; E78.5 Hyperlipidemia, unspecified; E66.9 Obesity, unspecified; Z68.36 Body mass index [BMI] 36.0-36.9, adult; Z91.018 Allergy to other foods; Z91.09 Other allergy status, other than to drugs and biological substances; G89.18 Other acute postprocedural pain
CPT/HCPCS: 27447; 36415; 73560; 80053; 85025; 94760; 94761; 97110; 97116; 97161; 97165; 97535; A9270; C1713; C1776; G0378; J0171; J0690; J0697; J1885; J2250; J2270; J2370; J2405; J2704; J2795; J3370; J7120; U0002; 01402; 64450; 76942

== ENCOUNTER 2022-02-09 07:58 | Day surgery (SDC) | payer MEDICARE, OTHER ==
[~2022-02-09 07:58] MED LIST changes: -Acetaminophen 325 MG Tab PO SCH; -EPINEPHrine 1 MG/ML SDV ONE; -Pregabalin 25 MG Cap PO SCH; -Ropivacaine 0.5% 5 MG/ML 30 ML SDV ONE; -Scopolamine 1.5 MG Transdermal Patch TOP SCH; +Sodium Chloride 0.9% 10 ML Syringe FLUSH SCH; -oxyCODONE ER 10 MG TAB.ER PO SCH
[2022-02-09] MEDS ORDERED: Propofol 200 MG/20 ML SDV ONE (08:37)
[2022-02-09] MEDS ORDERED: Lidocaine 1% 4 ML ONE (10:23)
[2022-02-09 18:06] VITALS: BP 115/68; PULSE 57
== END 2022-02-09 11:05 | disposition home or self-care (01) ==
LOC: JD.SDS 07:58
PROVIDERS: ATTEND Surgery
DX: K29.50 Unspecified chronic gastritis without bleeding (principal); K21.00 Gastro-esophageal reflux disease with esophagitis, without bleeding; K44.9 Diaphragmatic hernia without obstruction or gangrene; E78.5 Hyperlipidemia, unspecified; E55.9 Vitamin D deficiency, unspecified; K90.49 Malabsorption due to intolerance, not elsewhere classified; E78.00 Pure hypercholesterolemia, unspecified; I50.9 Heart failure, unspecified; E66.9 Obesity, unspecified; Z90.49 Acquired absence of other specified parts of digestive tract; Z91.018 Allergy to other foods; Z79.82 Long term (current) use of aspirin; Z79.899 Other long term (current) drug therapy; Z98.890 Other specified postprocedural states; Z68.31 Body mass index [BMI] 31.0-31.9, adult
CPT/HCPCS: 43239; J2704; J7120; 00731; 99100

== ENCOUNTER 2022-12-23 11:01 | Emergency (ER) | payer MEDICARE, OTHER ==
[2022-12-23 12:50] VITALS: BP 138/80; PULSE 60
== END 2022-12-23 12:45 | disposition home or self-care (01) ==
LOC: JD.ED 11:01
DX: M25.532 Pain in left wrist (principal); I50.9 Heart failure, unspecified; M19.90 Unspecified osteoarthritis, unspecified site; E66.9 Obesity, unspecified; Z68.33 Body mass index [BMI] 33.0-33.9, adult; Z98.890 Other specified postprocedural states; Z91.011 Allergy to milk products; Z91.018 Allergy to other foods; Z79.82 Long term (current) use of aspirin; Z79.899 Other long term (current) drug therapy
CPT/HCPCS: 73110-26-LT; 73110-LT; 99283

== ENCOUNTER 2023-12-05 09:39 | Emergency (ER) | payer MEDICARE, OTHER ==
[2023-12-05] MEDS: Albuterol 6.7 GM Inhaler INH ONE (11:35)
[2023-12-05 12:14] VITALS: BP 119/83; PULSE 86
== END 2023-12-05 12:13 | disposition home or self-care (01) ==
LOC: JD.ED 09:39
DX: J20.9 Acute bronchitis, unspecified (principal); I10 Essential (primary) hypertension; K21.9 Gastro-esophageal reflux disease without esophagitis; Z91.011 Allergy to milk products; Z91.018 Allergy to other foods; Z91.048 Other nonmedicinal substance allergy status; Z79.82 Long term (current) use of aspirin; Z90.710 Acquired absence of both cervix and uterus; Z90.49 Acquired absence of other specified parts of digestive tract
CPT/HCPCS: 71046; 94640; 99285; A9270; 99283

== ENCOUNTER 2024-02-03 23:39 | Emergency (ER) | payer MEDICARE, OTHER ==
[2024-02-04] MEDS: Sodium Chloride 0.9% 10 ML Syringe FLUSH PRN (00:15)
[2024-02-04 00:25] LABS: BASOPHILS ABSOLUTE AUTO 0.1 K/mm3 (0.0-0.2); EOSINOPHILS ABSOLUTE AUTO 0.6 K/mm3 (0.0-0.4); EOSINOPHILS PERCENT AUTO 5.9 % (0.0-6.0); HEMATOCRIT 47.5 % (37.0-47.0); HEMOGLOBIN 15.6 gm/dl (12.0-16.0); IMMATURE GRAN ABSOLUTE AUTO 0.02 K/mm3 (0.00-0.05); IMMATURE GRAN PERCENT AUTO 0.2 % (0.0-0.4); LYMPHOCYTES ABSOLUTE AUTO 3.8 K/mm3 (1.0-4.8); LYMPHOCYTES PERCENT AUTO 36.7 % (24.0-44.0); MEAN CORPUSCULAR HEMOGLOBIN 30.1 pg (28.0-32.0); MEAN CORPUSCULAR HGB CONC 32.8 g/dl (32.0-36.0); MEAN CORPUSCULAR VOLUME 91.7 fl (83.0-99.0); MEAN PLATELET VOLUME 10.8 fl (9.4-12.3); MONOCYTES PERCENT AUTO 10.1 % (0.0-8.0); NEUTROPHILS ABSOLUTE AUTO 4.8 K/mm3 (1.8-7.7); NEUTROPHILS PERCENT AUTO 46.1 % (41.0-71.0); PLATELET COUNT,PLT 289 K/mm3 (150-400); RED BLOOD CELL COUNT 5.18 M/mm3 (4.10-5.30); WHITE BLOOD CELL COUNT,WBC 10.32 K/mm3 (3.9-11.3)
[2024-02-04 00:27] LABS: APPEARANCE,URINE CLEAR (Clear); BILIRUBIN,URINE NEGATIVE (Negative); COLOR,URINE LIGHT YELLOW (Yellow); GLUCOSE,URINE NEGATIVE (Negative); KETONES,URINE NEGATIVE (Negative); LEUKOCYTE ESTERASE,URINE 2+ (Negative); NITRITE,URINE NEGATIVE (Negative); OCCULT BLOOD,URINE TRACE-LYSED (Negative); PH,URINE 6.5 (5.0-8.0); PROTEIN,URINE NEGATIVE (Negative); UROBILINOGEN,URINE 0.2 (0.2-1.0)
[2024-02-04 00:36] LABS: RBC,URINE 0-5 /hpf (0-5)
[2024-02-04 00:37] LABS: BACTERIA,URINE FEW /hpf (FEW); MUCUS,URINE NOT SEEN /hpf (FEW); RENAL EPITHELIAL CELLS,URINE 0-5 /hpf (0-5); SQUAMOUS EPITHELIAL CELLS,UR 0-5 /hpf (0-5)
[2024-02-04 00:47] LABS: ANION GAP 9.7 (5-15); EST CRCL DRUG DOSING (CG) 43.91 mL/min; POTASSIUM,K 3.7 mEq/L (3.5-5.1)
[2024-02-04 00:48] LABS: ALBUMIN 3.8 g/dl (3.4-5.0); BILIRUBIN TOTAL 0.5 mg/dL (0.2-1.0); CALCIUM 9.4 mg/dL (8.5-10.1); MAGNESIUM 2.2 mg/dL (1.8-2.4); PROTEIN TOTAL,TP 7.5 g/dl (6.4-8.2)
[2024-02-04] MEDS: Diltiazem 180 MG Cap.CD PO ONE (00:58)
[2024-02-04] MEDS: Diltiazem 120 MG Cap.CD PO ONE (01:06)
[2024-02-04 01:27] LABS: T4 FREE 1.07 ng/dL (0.76-1.46); TSH 0.854 uIU/mL (0.358-3.74)
[2024-02-04] MEDS: Cefdinir 300 MG Cap PO ONE (02:17)
[2024-02-04 02:33] VITALS: BP 159/98; PULSE 68
== END 2024-02-04 02:25 | disposition home or self-care (01) ==
LOC: JD.ED 23:39
DX: I10 Essential (primary) hypertension (principal); E04.9 Nontoxic goiter, unspecified; I49.9 Cardiac arrhythmia, unspecified; N39.0 Urinary tract infection, site not specified; E66.9 Obesity, unspecified; Z90.49 Acquired absence of other specified parts of digestive tract; Z90.710 Acquired absence of both cervix and uterus; Z79.82 Long term (current) use of aspirin; Z79.899 Other long term (current) drug therapy; Z79.52 Long term (current) use of systemic steroids; Z91.018 Allergy to other foods; Z88.8 Allergy status to other drugs, medicaments and biological substances; Z91.048 Other nonmedicinal substance allergy status; Z68.33 Body mass index [BMI] 33.0-33.9, adult
CPT/HCPCS: 36415; 71250; 80053; 81001; 83735; 84439; 84443; 84484; 85025; 87086; 93005; 99285; A9270; J3490; 87088; 87186

== ENCOUNTER 2025-04-14 21:09 | Emergency (ER) | payer MEDICARE, OTHER ==
[2025-04-14] MEDS ORDERED: Sodium Chloride 0.9% 10 ML Syringe FLUSH PRN (21:24)
[2025-04-14] MEDS: fentaNYL 100 MCG/2 ML SDV IVPUSH ONE (21:32)
[2025-04-14 21:42] LABS: BASOPHILS ABSOLUTE AUTO 0.0 K/mm3 (0.0-0.2); BASOPHILS PERCENT AUTO 0.2 % (0.0-1.0); EOSINOPHILS ABSOLUTE AUTO 0.0 K/mm3 (0.0-0.4); EOSINOPHILS PERCENT AUTO 0.1 % (0.0-6.0); IMMATURE GRAN ABSOLUTE AUTO 0.05 K/mm3 (0.00-0.05); IMMATURE GRAN PERCENT AUTO 0.6 % (0.0-0.4); LYMPHOCYTES ABSOLUTE AUTO 1.6 K/mm3 (1.0-4.8); LYMPHOCYTES PERCENT AUTO 19.1 % (24.0-44.0); MEAN PLATELET VOLUME 11.1 fl (9.4-12.3); MONOCYTES ABSOLUTE AUTO 0.7 K/mm3 (0.0-0.8); MONOCYTES PERCENT AUTO 7.8 % (0.0-8.0); NEUTROPHILS ABSOLUTE AUTO 6.1 K/mm3 (1.8-7.7); NEUTROPHILS PERCENT AUTO 72.2 % (41.0-71.0); NRBC ABSOLUTE 0.00 (0.00-0.02); NRBC PERCENT 0.0 % (0.0-0.2); PLATELET COUNT,PLT 261 K/mm3 (150-400); RED BLOOD CELL COUNT 4.98 M/mm3 (4.10-5.30); WHITE BLOOD CELL COUNT,WBC 8.41 K/mm3 (3.9-11.3)
[2025-04-14 22:05] LABS: A/G RATIO 1.2 (1-2); ALANINE AMINOTRANSFERASE,ALT 23.0 U/L (14-59); ASPARTATE AMNIOTRANSFERASE,AST 26.0 U/L (15-37); BILIRUBIN TOTAL 0.5 mg/dL (0.2-1.0); BLOOD UREA NITROGEN,BUN 27.0 mg/dL (7-18); CARBON DIOXIDE,CO2 25.0 mEq/L (21-32); CHLORIDE,CL 102.0 mEq/L (98-107); CREATININE 1.2 mg/dL (0.55-1.02); EST CRCL DRUG DOSING (CG) 33.02 mL/min; ESTIMATED GFR 48.0 mL/min (>60); GLUCOSE RANDOM 140.0 mg/dL (70-99); POTASSIUM,K 4.2 mEq/L (3.5-5.1); PROTEIN TOTAL,TP 6.7 g/dl (6.4-8.2); SODIUM,NA 136.0 mEq/L (136-145)
[2025-04-14] MEDS: Diphtheria,Pertussis(Acell),Tetanus Vaccine 0.5 ML Syringe IM ONE (22:19)
[2025-04-15 00:01] LABS: APPEARANCE,URINE CLEAR (Clear); GLUCOSE,URINE 2+ (Negative); OCCULT BLOOD,URINE NEGATIVE (Negative)
[2025-04-15 00:07] VITALS: PULSE 37
[2025-04-15 02:54] VITALS: BP 115/76
== END 2025-04-15 01:30 ==
LOC: JD.ED 21:09
DX: S00.81XA Abrasion of other part of head, initial encounter (principal); I48.91 Unspecified atrial fibrillation; I10 Essential (primary) hypertension; E78.00 Pure hypercholesterolemia, unspecified; K21.9 Gastro-esophageal reflux disease without esophagitis; Z91.018 Allergy to other foods; Z91.048 Other nonmedicinal substance allergy status; Z79.82 Long term (current) use of aspirin; Z79.899 Other long term (current) drug therapy; Z23 Encounter for immunization; Z91.011 Allergy to milk products; W01.0XXA Fall on same level from slipping, tripping and stumbling without subsequent striking against object, initial encounter; Y93.89 Activity, other specified
CPT/HCPCS: 36415; 70450; 72125; 80053; 81003; 84484; 85025; 90471; 90715; 93005; 96374; 99285; J3010